=== PATIENT | female | born 1960 | race Caucasian/White ===

== ENCOUNTER 2017-06-06 07:20 | Day surgery (SDC) | payer MEDICAID ==
[~2017-06-06 07:20] MED LIST: Lactated Ringers 1,000 ML IV SCH; Lidocaine 1%/Sod Bicarbonate in NS 8.4% 1 ML Syringe PRN; Propofol 200 MG/20 ML SDV ONE; Sodium Chloride 0.9% 10 ML Syringe FLUSH PRN
--- NOTE | 2017-06-06 08:04 | PCM.PREANE ---
Preanesthetic Assessment - Anesthesia/Transfusion/Family Hx Anesthesia History: Prior Anesthesia Without Reaction Family History of Anesthesia Reaction: No Transfusion History: Prior Transfusion Reaction Intubation History: Unknown - Review of Systems General: Weakness, Fatigue Pulmonary: Shortness of Breath Cardiovascular: No Symptoms Gastrointestinal: No Symptoms Other: Reports: None - Physical Assessment NPO Status Date: 06/06/17 NPO Status Time: 04:00 Pulse: 70 O2 Sat by Pulse Oximetry: 98 Respiratory Rate: 16 Blood Pressure: 100/67 Temperature: 98.9 C ASA Class: 2 Mental Status: Alert & Oriented x3 Airway Class: Mallampati = 2 Dentition: Reports: Dentures Thyro-Mental Finger Breadths: 3 Mouth Opening Finger Breadths: 3 ROM/Head Extension: Full Lungs: Clear to Auscultation, Normal Respiratory Effort, Crackles Cardiovascular: Regular Rate, Regular Rhythm - Allergies Allergies/Adverse Reactions: Allergies Allergy/AdvReac Type Severity Reaction Status Date / Time bacitracin Allergy Rash Verified 06/03/17 11:08 [From Neosporin ([id number]-[id number])] bacitracin zinc Allergy Rash Verified 06/03/17 11:08 [From Neosporin ([id number]-gyt-[id number])] clonidine HCl [From Catapres] Allergy Hives Verified 06/03/17 11:08 neomycin sulfate Allergy Rash Verified 06/03/17 11:08 [From Neosporin ([id number]-[id number])] polymyxin B Allergy Rash Verified 06/03/17 11:08 [From Neosporin (uwj-[id number])] codeine AdvReac Nausea and Verified 06/03/17 11:08 Vomiting - Anesthesia Plan Beta Tarik: Carvedilol Med Last Dose Date: 06/04/17 - Acknowledgements Anesthesia Type Planned: MAC Pt an Appropriate Candidate for the Planned Anesthesia: Yes Alternatives and Risks of Anesthesia Discussed w Pt/Guardian: Yes Pt/Guardian Understands and Agrees with Anesthesia Plan: Yes PreAnesthesia Questionnaire HEENT History: Reports: Impaired Vision Cardiovascular History: Reports: CAD, High Cholesterol, Hypertension, Stents, Other (See Below) Other Cardiovascular History: palpitations, chest pain, sinus tachycardia, angiogram Respiratory History: Reports: COPD, SOB Gastrointestinal History: Reports: Chronic Constipation, Hemorrhoids, Other ( See Below) Other Gastrointestinal History: weight loss, rectal bleeding, liver cysts, Hepatits A Genitourinary History: Reports: Urinary Incontinence [employer]IE[employer]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 History: Reports: None Neurological History: Reports: None Psychiatric History: Reports: Addiction, Anxiety, Panic Attack, Other (See Below ) Other Psychiatric History: fatigue, etoh abuse Endocrine/Metabolic History: Reports: None Hematologic History: Reports: Anemia, Blood Transfusion(s) Immunologic History: Reports: None Oncologic (Cancer) History: Reports: None Dermatologic History: Reports: None - Past Surgical History Head Surgeries/Procedures: Reports: None HEENT Surgical History: Cardiovascular Surgical History: Reports: None Respiratory Surgical History: Reports: None GI Surgical History: Reports: Colonoscopy, EGD Female Surgical History: Reports: Breast Reconstruction, Tubal Ligation Male Surgical History: Reports: None Endocrine Surgical History: Reports: None Neurological Surgical History: Reports: None Musculoskeletal Surgical History: Reports: Other (See Below) Other Musculoskeletal Surgeries/Procedures:: left leg fracture with surgery Oncologic Surgical History: Reports: None Dermatological Surgical History: Reports: None - SUBSTANCE USE Smoking Status *Q: Current Every Day Smoker Second Hand Smoke Exposure: No Days Per Week of Alcohol Use: 7 Number of Drinks Per Day: 12 Total Drinks Per Week: 84 Recreational Drug Use History: No - HOME MEDS Home Medications: Home Meds Simvastatin [Zocor] 40 mg PO BEDTIME 03/09/14 [History] Nitroglycerin [Nitrostat] 0.4 mg SL Q5M PRN 03/10/14 [History] [place]-3 Fatty Acids [[place]-3] 1,000 mg PO BID 03/10/14 [History] Albuterol Sulfate [Proair Hfa] 2 puff INH Q4H PRN 06/03/17 [History] Aspirin [Halfprin] 81 mg PO DAILY 06/03/17 [History] Cholecalciferol (Vitamin D3) [Vitamin D3] 1,000 unit PO DAILY 06/03/17 [History] ClonazePAM [KlonoPIN] 0.5 mg PO TID 06/03/17 [History] Fluticasone/Salmeterol [Advair 250-50 Diskus] 1 puff INH BID 06/03/17 [History] Isosorbide Mononitrate [Imdur] 60 mg PO DAILY 06/03/17 [History] Tiotropium [Spiriva Handihaler] 1 puff INH DAILY 06/03/17 [History] Venlafaxine HCl [Venlafaxine ER] 75 mg PO DAILY 06/03/17 [History] Venlafaxine HCl [Venlafaxine ER] 150 mg PO DAILY 06/03/17 [History] busPIRone [Buspar] 5 mg PO TID 06/03/17 [History] traZODone HCl [Trazodone HCl] 50 mg PO BEDTIME 06/03/17 [History] - CURRENT (IN HOUSE) MEDS Current Meds: Current Medications Lactated Ringer's (Ringers, Lactated) 1,000 mls @ 125 mls/hr IV ASDIRECTED FERMIN Stop: 06/06/17 23:00 Lidocaine/Sodium Bicarbonate (Buffered Lidocaine 1% In Ns 8.4%) 0.25 ml .XX ONETIME PRN PRN Reason: Prior to IV Start Stop: 06/06/17 18:00 Sodium Chloride (Saline Flush) 10 ml FLUSH ASDIRECTED PRN PRN Reason: Keep Vein Open Stop: 06/06/17 18:00 Discontinued Medications Propofol (Diprivan 20 Ml) Confirm Administered Dose 200 mg .ROUTE .STK-MED ONE Stop: 06/06/17 07:18
[2017-06-06] MEDS ORDERED: Propofol 200 MG/20 ML SDV ONE (08:49)
--- NOTE | 2017-06-06 09:26 | PCM48HPAN ---
Post Anesthesia Note - EVALUATION WITHIN 48HRS OF ANESTHETIC Vital Signs in Normal Range: Yes Patient Participated in Evaluation: Yes Respiratory Function Stable: Yes Airway Patent: Yes Cardiovascular Function Stable: Yes Hydration Status Stable: Yes Pain Control Satisfactory: Yes Nausea and Vomiting Control Satisfactory: Yes Mental Status Recovered: Yes
[2017-06-06 09:49] VITALS: BP 105/69
--- NOTE | 2017-06-06 10:00 | PCM.OPNOTE ---
- General Post-Op/Procedure Note Date of Surgery/Procedure: 06/06/17 Operative Procedure(s): EGD with bx and colonosocopy Pre Op Diagnosis: rectal bleeding and early satiety and wt loss Post-Op Diagnosis: Same Anesthesia Technique: MAC Primary Surgeon: Kenney Amos EBL in mLs: 0 Complications: None Condition: Good
--- NOTE | 2017-06-06 12:39 | OR ---
DATE OF OPERATION: 06/06/2017 SURGEON: Kenney Amos MD PREOPERATIVE DIAGNOSIS: Early satiety, weight loss. POSTOPERATIVE DIAGNOSIS: Early satiety, weight loss. OPERATION PERFORMED: Esophagogastroduodenoscopy with biopsy. FINDINGS AND PROCEDURE: Normal second portion of the duodenum, duodenal bulb, and pyloric channel. Antrum, body, and cardia of the stomach did not show any acute lesions. There were some specks of blood noted throughout the stomach without any source noted. Biopsies of the antrum were taken. The hiatus appeared to be intact and scope withdrawn to the GE junction located at 40 cm. There was some chronic esophagitis, but no acute disease. The Z-line was sharp. The rest of the esophagus was viewed as the scope withdrawn was normal. The patient tolerated the procedure and IV sedation was continued for colonoscopy. ANESTHESIA: ESTIMATED BLOOD LOSS: MMODAL /[id number]
--- NOTE | 2017-06-06 12:39 | OR ---
DATE OF OPERATION: 06/06/2017 SURGEON: Kenney Amos MD PREOPERATIVE DIAGNOSIS: Rectal bleeding. POSTOPERATIVE DIAGNOSIS: Rectal bleeding. OPERATION PERFORMED: Colonoscopy to cecum. FINDINGS: Occasional diverticula in the sigmoid colon. Internal hemorrhoids are likely source of bleeding. There were no angiodysplasias, neoplasias, large tumor masses, or ulcerations. ANESTHESIA: Under IV sedation. DESCRIPTION OF PROCEDURE: The patient was taken to the endoscopy room, placed in a supine position, having been connected to monitoring equipment, given IV sedation for upper GI endoscopy, the IV sedation was continued for colonoscopy. She was placed in the left lateral position. Perianal area showed some hemorrhoidal tags. Rectal exam showed good sphincter tone. Video Olympus colonoscope was then introduced into the rectum and threaded up without problem to the cecum, where the appendicular orifice and ileocecal valve were noted. Prep was excellent throughout the colon. [place] cleansing score grade A. The scope was slowly withdrawn showing the cecum, ascending colon, transverse colon, descending colon, sigmoid colon, and rectum. Internal hemorrhoids were noted as the likely source of bleeding. The patient tolerated the procedure and sent to recovery room in a stable condition. She will be followed up as needed in the clinic. ESTIMATED BLOOD LOSS: MMODAL /[id number]
== END 2017-06-06 10:10 | disposition home or self-care (01) ==
LOC: JD.SDS 07:20
PROVIDERS: ATTEND Surgery
DX: K29.50 Unspecified chronic gastritis without bleeding (principal); K64.8 Other hemorrhoids; K20.9 Esophagitis, unspecified; K57.30 Diverticulosis of large intestine without perforation or abscess without bleeding; I25.10 Atherosclerotic heart disease of native coronary artery without angina pectoris; I10 Essential (primary) hypertension; J44.9 Chronic obstructive pulmonary disease, unspecified; E78.5 Hyperlipidemia, unspecified; F41.9 Anxiety disorder, unspecified; Z98.890 Other specified postprocedural states; Z88.1 Allergy status to other antibiotic agents; Z98.51 Tubal ligation status; Z79.82 Long term (current) use of aspirin; Z79.899 Other long term (current) drug therapy; F17.210 Nicotine dependence, cigarettes, uncomplicated; Z88.8 Allergy status to other drugs, medicaments and biological substances
CPT/HCPCS: 43239; J7120; 00810; J2704

== ENCOUNTER 2018-07-27 07:08 | Day surgery (SDC) | payer MEDICAID ==
[~2018-07-27 07:08] MED LIST changes: +Lidocaine 1%/Sod Bicarbonate in NS 8.4% 1 ML Syringe IDERM PRN; -Lidocaine 1%/Sod Bicarbonate in NS 8.4% 1 ML Syringe PRN; -Propofol 200 MG/20 ML SDV ONE
[2018-07-27] MEDS ORDERED: Bupivacaine 0.5%/EPINEPHrine 1:200,000 50 ML MDV ONE (07:22)
[2018-07-27] MEDS ORDERED: Lidocaine 1% with EPINEPHrine 1:100,000 20 ML MDV ONE (07:22)
--- NOTE | 2018-07-27 07:31 | PCM.PREANE ---
Preanesthetic Assessment - Anesthesia/Transfusion/Family Hx Anesthesia History: Prior Anesthesia Without Reaction Family History of Anesthesia Reaction: No Transfusion History: Prior Transfusion Reaction Intubation History: Unknown - Review of Systems General: No Symptoms Pulmonary: Cough (smoking AM and PM), Sputum Cardiovascular: Dyspnea on Exertion Gastrointestinal: No Symptoms Neurological: Numbness (fingers) Other: Reports: Easy Bleeding (nose), Easy Bruising, Anxiety - Physical Assessment NPO Status Date: 07/26/18 NPO Status Time: 00:00 Pulse: 68 O2 Sat by Pulse Oximetry: 98 Respiratory Rate: 16 Blood Pressure: 122/81 Temperature: 36.9 C Height: 1.65 m Weight: 69.581 kg ASA Class: 3 Mental Status: Alert & Oriented x3 Dentition: Reports: Dentures, Partial (lowwer) Thyro-Mental Finger Breadths: 3 Mouth Opening Finger Breadths: 2 ROM/Head Extension: Full Lungs: Clear to Auscultation, Normal Respiratory Effort Cardiovascular: Regular Rate, Regular Rhythm - Lab Values: on chart - Imaging/EKG Impressions: EKG 07/27/18 SR - Allergies Allergies/Adverse Reactions: Allergies Allergy/AdvReac Type Severity Reaction Status Date / Time bacitracin Allergy Rash Verified 07/26/18 13:07 [From Neosporin ([id number]-[id number])] bacitracin zinc Allergy Rash Verified 07/26/18 13:07 [From Neosporin (keo-azy-[id number])] clonidine HCl [From Catapres] Allergy Hives Verified 07/26/18 13:07 neomycin sulfate Allergy Rash Verified 07/26/18 13:07 [From Neosporin (jhm-shf-cvitb)] polymyxin B Allergy Rash Verified 07/26/18 13:07 [From Neosporin (rob-xpi-[id number])] codeine AdvReac Nausea and Verified 07/26/18 13:07 Vomiting - Blood Blood Available: No Product(s) Available: None - Anesthesia Plan Pre-Op Medication Ordered: Beta Tarik Beta Tarik: Carvedilol Med Last Dose Date: 07/26/18 Med Last Dose Time: 07:00 - Acknowledgements Anesthesia Type Planned: MAC Pt an Appropriate Candidate for the Planned Anesthesia: Yes Alternatives and Risks of Anesthesia Discussed w Pt/Guardian: Yes Pt/Guardian Understands and Agrees with Anesthesia Plan: Yes PreAnesthesia Questionnaire HEENT History: Reports: Impaired Vision, Other (See Below) Other HEENT History: wears glasses, has dentures Cardiovascular History: Reports: CAD, High Cholesterol, Hypertension, Stents, Other (See Below) Other Cardiovascular History: palpitations, chest pain, sinus tachycardia, angiogram Respiratory History: Reports: COPD, SOB Gastrointestinal History: Reports: Chronic Constipation, Hemorrhoids, Other ( See Below) Other Gastrointestinal History: weight loss, rectal bleeding, liver cysts, Hepatits A, reflux esophagitis, diverticula Genitourinary History: Reports: Urinary Incontinence [employer]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 Musculoskeletal History: Reports: Osteoporosis Neurological History: Reports: None Psychiatric History: Reports: Addiction, Anxiety, Panic Attack, Other (See Below ) Other Psychiatric History: fatigue, etoh abuse Endocrine/Metabolic History: Reports: None Hematologic History: Reports: Anemia, Blood Transfusion(s) Immunologic History: Reports: None Oncologic (Cancer) History: Reports: None Dermatologic History: Reports: None - Past Surgical History Head Surgeries/Procedures: Reports: None Cardiovascular Surgical History: Reports: None Respiratory Surgical History: Reports: None GI Surgical History: Reports: Colonoscopy, EGD Female Surgical History: Reports: Breast Reconstruction, Tubal Ligation Male Surgical History: Reports: None Endocrine Surgical History: Reports: None Neurological Surgical History: Reports: None Musculoskeletal Surgical History: Reports: Other (See Below) Other Musculoskeletal Surgeries/Procedures:: left leg fracture with surgery Oncologic Surgical History: Reports: None Dermatological Surgical History: Reports: Skin Biopsy - SUBSTANCE USE Smoking Status *Q: Current Every Day Smoker Tobacco Use Within Last Twelve Months: Cigarettes Second Hand Smoke Exposure: No Days Per Week of Alcohol Use: 0 Number of Drinks Per Day: 0 Total Drinks Per Week: 0 Recreational Drug Use History: No - HOME MEDS Home Medications: Home Meds Simvastatin [Zocor] 40 mg PO BEDTIME 03/09/14 [History] Nitroglycerin [Nitrostat] 0.4 mg SL Q5M PRN 03/10/14 [History] [place]-3 Fatty Acids [[place]-3] 1,000 mg PO BID 03/10/14 [History] Albuterol Sulfate [Proair Hfa] 2 puff INH Q4H PRN 06/03/17 [History] Aspirin [Halfprin] 81 mg PO DAILY 06/03/17 [History] Cholecalciferol (Vitamin D3) [Vitamin D3] 2,000 unit PO DAILY 06/03/17 [History] ClonazePAM [KlonoPIN] 0.5 mg PO TID 06/03/17 [History] Fluticasone/Salmeterol [Advair 250-50 Diskus] 1 puff INH BID 06/03/17 [History] Tiotropium [Spiriva Handihaler] 1 puff INH BID 06/03/17 [History] Venlafaxine HCl [Venlafaxine ER] 75 mg PO DAILY 06/03/17 [History] Venlafaxine HCl [Venlafaxine ER] 150 mg PO DAILY 06/03/17 [History] traZODone HCl [Trazodone HCl] 100 mg PO BEDTIME 06/03/17 [History] Albuterol [Proventil Neb Soln] 1 dose INH QID PRN 07/26/18 [History] Carvedilol [Coreg] 3.125 mg PO DAILY 07/26/18 [History] Isosorbide Mononitrate [Imdur] 30 mg PO DAILY 07/26/18 [History] LORazepam [Ativan] 0.5 mg PO TID PRN 07/26/18 [History] Multivitamin [Daily Multiple Vitamin] 1 tab PO DAILY 07/26/18 [History] Naproxen Sodium [Aleve] 220 mg PO BID PRN 07/26/18 [History] Omeprazole 20 mg PO QAM 07/26/18 [History] - CURRENT (IN HOUSE) MEDS Current Meds: Current Medications Lactated Ringer's (Ringers, Lactated) 1,000 mls @ 125 mls/hr IV ASDIRECTED FERMIN Stop: 07/27/18 23:00 Lidocaine/Sodium Bicarbonate (Buffered Lidocaine 1% In Ns 8.4%) 0.25 ml IDERM ONETIME PRN PRN Reason: Prior to IV Start Stop: 07/27/18 18:00 Sodium Chloride (Saline Flush) 10 ml FLUSH ASDIRECTED PRN PRN Reason: Keep Vein Open Stop: 07/27/18 18:00
[2018-07-27] MEDS ORDERED: Carvedilol 3.125 MG Tab PO SCH (07:45)
[2018-07-27] MEDS ORDERED: Ondansetron 4 MG/2 ML SDV ONE (07:51)
[2018-07-27] MEDS ORDERED: Midazolam 1 MG/ML 2 ML SDV ONE (07:52)
[2018-07-27] MEDS ORDERED: Propofol 200 MG/20 ML SDV ONE ×2 (07:52→09:11)
[2018-07-27] MEDS ORDERED: Lidocaine 1% 4 ML ONE (07:52)
[2018-07-27] MEDS ORDERED: fentaNYL 250 MCG/5 ML SDV ONE (07:52)
[2018-07-27] MEDS ORDERED: Ketamine 500 mg/10 ML MDV ONE (08:55)
[2018-07-27] MEDS ORDERED: Lactated Ringers 1,000 ML ONE (09:04)
[2018-07-27] MEDS ORDERED: ePHEDrine/Normal Saline 25 MG/5 ML Syringe ONE (09:13)
--- NOTE | 2018-07-27 09:52 | PCM.OPNOTE ---
- General Post-Op/Procedure Note Date of Surgery/Procedure: 07/27/18 Operative Procedure(s): excisional biopsy of rt cervical node Pre Op Diagnosis: cervical adenopathy Post-Op Diagnosis: Same Anesthesia Technique: MAC Primary Surgeon: Kenney Amos EBL in mLs: 8 Complications: None Condition: Good
[2018-07-27 11:11] VITALS: BP 131/86
--- NOTE | 2018-07-28 07:30 | OR ---
DATE OF OPERATION: 07/27/2018 SURGEON: Kenney Amos MD PREOPERATIVE DIAGNOSIS: Right cervical adenopathy. POSTOPERATIVE DIAGNOSIS: Right cervical adenopathy. PROCEDURE: Excision of right cervical node with biopsy. ANESTHESIA: Done under IV sedation local anesthetic 1% Xylocaine with epinephrine ESTIMATED BLOOD LOSS: 8 mL. DESCRIPTION OF PROCEDURE: Patient was seen in the preop and ultrasound was done showing the most efficacious nodule in the right cervical area to biopsy and this was marked. She was then taken to the operating room, placed in a supine position, connected to monitoring equipment, given IV sedation. The right neck was then clipped and prepped with chlorhexidine and alcohol, prepped and draped off in a sterile fashion. A vertical incision was made over the shila after localizing the skin in that area and carried down by sharp dissection to the nodule. Care was taken to preserve the superficial nerves. The node was then dissected out, portion of it did rupture showing necrotic material and this lymph node was then excised and another lymph node, pieces were taken in biopsy. The area was cleansed of the necrotic material and bleeding points were controlled at the capsule of the lymph node with electrocautery, which was quite sclerotic. The lymph node measured over a centimeter, about a centimeter and half. Surgicel was used to control oozing. The Surgicel was then removed and the subcuticular tissue was closed with interrupted 3-0 Vicryl suture and the skin with a running subdermal 4-0 Dexon suture. Steri-Strips and sterile dressing placed. The patient tolerated the procedure and sent to recovery room in a stable condition. OPERATION PERFORMED: MMODAL /[id number]
== END 2018-07-27 11:05 | disposition home or self-care (01) ==
LOC: JD.SDS 07:08
PROVIDERS: ATTEND Surgery
DX: C77.0 Secondary and unspecified malignant neoplasm of lymph nodes of head, face and neck (principal); C80.1 Malignant (primary) neoplasm, unspecified; J44.9 Chronic obstructive pulmonary disease, unspecified; I25.10 Atherosclerotic heart disease of native coronary artery without angina pectoris; E78.5 Hyperlipidemia, unspecified; I10 Essential (primary) hypertension; B15.9 Hepatitis A without hepatic coma; E78.00 Pure hypercholesterolemia, unspecified; M80.00XA Age-related osteoporosis with current pathological fracture, unspecified site, initial encounter for fracture; F17.210 Nicotine dependence, cigarettes, uncomplicated; Z88.1 Allergy status to other antibiotic agents; Z88.5 Allergy status to narcotic agent; Z88.8 Allergy status to other drugs, medicaments and biological substances; Z79.82 Long term (current) use of aspirin; Z79.899 Other long term (current) drug therapy
CPT/HCPCS: 38510; 76942; 93005; A9270; J2250; J2405; J2704; J3010; J7050; J7120; 00320; J2001; J3490

== ENCOUNTER 2018-09-22 11:33 | Day surgery (SDC) | payer MEDICAID ==
[~2018-09-22 11:33] MED LIST changes: +Lidocaine 1% PF 2 ML SDV ONE; +Midazolam 1 MG/ML 2 ML SDV ONE; +Propofol 200 MG/20 ML SDV ONE; +fentaNYL 100 MCG/2 ML SDV ONE
--- NOTE | 2018-09-22 11:33 | PCM.PREANE ---
Preanesthetic Assessment - Anesthesia/Transfusion/Family Hx Anesthesia History: Prior Anesthesia Without Reaction Family History of Anesthesia Reaction: No Transfusion History: Prior Transfusion Reaction Intubation History: Unknown - Review of Systems General: No Symptoms Pulmonary: No Symptoms (COPD- 1.5ppd times 40 years/ETOH:quit 2014.......Down to 2 cigarettes per day.), Shortness of Breath, Cough, Sputum (brown phlegm) Cardiovascular: No Symptoms (HTN, CAD-stents times 2 2010), Palpitations, Dyspnea on Exertion Gastrointestinal: No Symptoms (GERD history) Neurological: Headache, Numbness (fingers bilateral hands) Other: Reports: Easy Bleeding, Easy Bruising, Liver Problems (history of Hepatitis A as a child), Depression, Anxiety - Physical Assessment NPO Status Date: 09/21/18 NPO Status Time: 19:00 Pulse: 59 O2 Sat by Pulse Oximetry: 98 Respiratory Rate: 16 Blood Pressure: 122/84 Temperature: 37.2 C Height: 1.65 m Weight: 70.987 kg ASA Class: 3 Mental Status: Alert & Oriented x3 Airway Class: Mallampati = 3 Dentition: Reports: Dentures, Partial (Lower) Thyro-Mental Finger Breadths: 3 Mouth Opening Finger Breadths: 2 ROM/Head Extension: Full Lungs: Clear to Auscultation, Normal Respiratory Effort Cardiovascular: Regular Rate, Regular Rhythm, No Murmurs - Lab Values: All lab values reviewed and noted and within acceptable ranges to proceed with scheduled procedure. - Imaging/EKG Impressions: EKG: rate=67 - Allergies Allergies/Adverse Reactions: Allergies Allergy/AdvReac Type Severity Reaction Status Date / Time bacitracin Allergy Rash Verified 07/26/18 13:07 [From Neosporin (nhi-wrh-fuiki)] bacitracin zinc Allergy Rash Verified 07/26/18 13:07 [From Neosporin (gie-rwo-gcflz)] clonidine HCl [From Catapres] Allergy Hives Verified 07/26/18 13:07 neomycin sulfate Allergy Rash Verified 07/26/18 13:07 [From Neosporin ([id number]-zqh-[id number])] polymyxin B Allergy Rash Verified 07/26/18 13:07 [From Neosporin (asw-jvf-husfe)] codeine AdvReac Nausea and Verified 07/26/18 13:07 Vomiting - Anesthesia Plan Pre-Op Medication Ordered: Beta Tarik Beta Tarik: Carvedilol Med Last Dose Date: 09/22/18 Med Last Dose Time: 08:00 - Acknowledgements Anesthesia Type Planned: MAC Pt an Appropriate Candidate for the Planned Anesthesia: Yes Alternatives and Risks of Anesthesia Discussed w Pt/Guardian: Yes Pt/Guardian Understands and Agrees with Anesthesia Plan: Yes PreAnesthesia Questionnaire HEENT History: Reports: Impaired Vision, Other (See Below) Other HEENT History: wears glasses, has dentures Cardiovascular History: Reports: CAD, High Cholesterol, Hypertension, Stents, Other (See Below) Other Cardiovascular History: palpitations, chest pain, sinus tachycardia, angiogram Respiratory History: Reports: COPD, SOB Gastrointestinal History: Reports: Chronic Constipation, Hemorrhoids, Other ( See Below) Other Gastrointestinal History: weight loss, rectal bleeding, liver cysts, Hepatits A, reflux esophagitis, diverticula Genitourinary History: Reports: Urinary Incontinence [employer]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 Musculoskeletal History: Reports: Osteoporosis Neurological History: Reports: None Psychiatric History: Reports: Addiction, Anxiety, Panic Attack, Other (See Below ) Other Psychiatric History: fatigue, etoh abuse Endocrine/Metabolic History: Reports: None Hematologic History: Reports: Anemia, Blood Transfusion(s) Immunologic History: Reports: None Oncologic (Cancer) History: Reports: None Dermatologic History: Reports: None - Past Surgical History Head Surgeries/Procedures: Reports: None Cardiovascular Surgical History: Reports: None Respiratory Surgical History: Reports: None GI Surgical History: Reports: Colonoscopy, EGD Female Surgical History: Reports: Breast Reconstruction, Tubal Ligation Male Surgical History: Reports: None Endocrine Surgical History: Reports: None Neurological Surgical History: Reports: None Musculoskeletal Surgical History: Reports: Other (See Below) Other Musculoskeletal Surgeries/Procedures:: left leg fracture with surgery Oncologic Surgical History: Reports: None Dermatological Surgical History: Reports: Skin Biopsy - HOME MEDS Home Medications: Home Meds Nitroglycerin [Nitrostat] 0.4 mg SL Q5M PRN 03/10/14 [History] [place]-3 Fatty Acids [[place]-3] 1,000 mg PO BID 03/10/14 [History] Albuterol Sulfate [Proair Hfa] 2 puff INH Q4H PRN 06/03/17 [History] Aspirin [Halfprin] 81 mg PO DAILY 06/03/17 [History] Cholecalciferol (Vitamin D3) [Vitamin D3] 2,000 unit PO DAILY 06/03/17 [History] ClonazePAM [KlonoPIN] 0.5 mg PO TID 06/03/17 [History] Fluticasone/Salmeterol [Advair 250-50 Diskus] 1 puff INH BID 06/03/17 [History] Tiotropium [Spiriva Handihaler] 2 puff INH DAILY 06/03/17 [History] Venlafaxine HCl [Venlafaxine ER] 75 mg PO DAILY 06/03/17 [History] Venlafaxine HCl [Venlafaxine ER] 150 mg PO DAILY 06/03/17 [History] traZODone HCl [Trazodone HCl] 100 mg PO BEDTIME 06/03/17 [History] Albuterol [Proventil Neb Soln] 1 dose INH QID PRN 07/26/18 [History] Carvedilol [Coreg] 3.125 mg PO DAILY 07/26/18 [History] Isosorbide Mononitrate [Imdur] 30 mg PO DAILY 07/26/18 [History] LORazepam [Ativan] 0.5 mg PO TID PRN 07/26/18 [History] Multivitamin [Daily Multiple Vitamin] 1 tab PO DAILY 07/26/18 [History] Naproxen Sodium [Aleve] 220 mg PO BID PRN 07/26/18 [History] Omeprazole 20 mg PO QAM 07/26/18 [History] - CURRENT (IN HOUSE) MEDS Current Meds: Current Medications Lactated Ringer's (Ringers, Lactated) 1,000 mls @ 125 mls/hr IV ASDIRECTED FERMIN Stop: 09/25/18 23:00 Lidocaine/Sodium Bicarbonate (Buffered Lidocaine 1% In Ns 8.4%) 0.25 ml IDERM ONETIME PRN PRN Reason: Prior to IV Start Stop: 09/25/18 23:00 Sodium Chloride (Saline Flush) 10 ml FLUSH ASDIRECTED PRN PRN Reason: Keep Vein Open Stop: 09/25/18 23:00
[2018-09-22] MEDS ORDERED: Lidocaine 1% 30 ML SDV ONE (11:36)
[2018-09-22] MEDS ORDERED: Sodium Chloride 0.9% 50 ML SDV ONE (11:36)
[2018-09-22] MEDS ORDERED: Ketamine 500 mg/10 ML MDV ONE (12:08)
[2018-09-22] MEDS ORDERED: ceFAZolin 1 GM Vial ONE (12:08)
[2018-09-22] MEDS ORDERED: Lactated Ringers 1,000 ML ONE (12:47)
[2018-09-22] MEDS ORDERED: Ondansetron 4 MG/2 ML SDV ONE (12:49)
--- NOTE | 2018-09-22 13:01 | PCM.OPNOTE ---
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
--- NOTE | 2018-09-22 13:09 | PCM48HPAN ---
Post Anesthesia Note - EVALUATION WITHIN 48HRS OF ANESTHETIC Vital Signs in Normal Range: Yes Patient Participated in Evaluation: Yes Respiratory Function Stable: Yes Airway Patent: Yes Cardiovascular Function Stable: Yes Hydration Status Stable: Yes Pain Control Satisfactory: Yes Nausea and Vomiting Control Satisfactory: Yes Mental Status Recovered: Yes Pulse Rate: 65 SaO2: 94 Resp Rate: 16 Temperature: 98 F Blood Pressure: 123/78
[2018-09-22 13:58] VITALS: BP 153/76
--- NOTE | 2018-09-25 07:09 | OR ---
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 OPERATION PERFORMED: Placement of left subclavian Port-A-Cath done under intravenous sedation and 1% Xylocaine. ESTIMATED BLOOD LOSS: 20 mL. PORT SPECIFICATIONS: Port placed was a [employer]vue PowerPort, reference #[id number] and lot #[id number]. DESCRIPTION OF PROCEDURE: The patient taken to the operating room, placed in a supine position, connected to monitoring equipment, and given IV sedation. Antibiotics were given, and the patient was positioned on the table with a roll between the shoulder blades. The subclavian area and neck on both sides, right and left, were then prepped with Betadine, draped off in a sterile fashion. The right infraclavicular area skin was anesthetized with 1% xylocaine, and a Cook needle was inserted into subclavian vein, and the wire was then inserted under fluoroscopy and noted to go into the inferior vena cava. Over the wire, a vein dilator and breakaway sheath were placed, and the dilator and the wire were then removed, and through this port, a Silastic catheter previously prepared with saline was then inserted into the superior vena cava and positioned. The breakaway sheath was then removed, and the port pocket was then fashioned, and the catheter threaded to the port pocket, trimmed and attached to the previously prepared port, and locked into the port with a locking mechanism. Port was placed in the pocket and sutured into position with a 4-0 Vicryl Prolene suture. Following this, the subcuticular tissue closed with interrupted 3-0 Vicryl suture. The port was then aspirated without problem, irrigated with saline and heparinized saline, and the skin was closed with subdermal 4-0 Dexon suture at both sites. The Steri-Strips and sterile dressing placed. The patient tolerated the procedure, sent to recovery room in a stable condition. Chest x-ray will be obtained. ANESTHESIA: MMODAL /[id number]
--- NOTE | 2018-09-25 09:06 | CR ---
Port-A-Cath placement: Single fluoroscopic spot view was obtained during Port-A-Cath placement centered to the right mid chest. Tip of Port-A-Cath is seen lying in the region of the superior vena cava. Fluoroscopy time is given as 39.0 seconds. Impression: 1. Procedural study as noted above. Diagnostic code #2 I agree with preliminary report from [facility], finalized on 09/22/18, 2:40 PM Central Time
--- NOTE | 2018-09-25 09:08 | CR ---
Chest: Frontal view of the chest was obtained utilizing portable technique. Comparison: Previous chest x-ray of 03/09/14. Left-sided infusion port is seen. Catheter terminates in the expected region of the superior vena cava. Lung markings have increased in prominence from previous exam. Heart size is felt to be within normal limits for portable technique. Fracture within the right seventh rib which is an interval change from prior chest x-ray. Impression: 1. Left-sided port with tip lying within the expected region of superior vena cava. No pneumothorax is seen. 2. Increased lung markings from prior study with differential including infectious change or pulmonary vascular congestion. Interval appearance of fibrosis from prior chest x-ray is also within the differential. 3. Right-sided rib fracture as noted above. Diagnostic code #3 I agree with preliminary report from [facility], finalized on 09/22/18, 2:29 PM Central Time
== END 2018-09-22 14:00 | disposition home or self-care (01) ==
LOC: JD.SDS 11:33
PROVIDERS: ATTEND Surgery
DX: C96.9 Malignant neoplasm of lymphoid, hematopoietic and related tissue, unspecified (principal); J44.9 Chronic obstructive pulmonary disease, unspecified; E89.6 Postprocedural adrenocortical (-medullary) hypofunction; I10 Essential (primary) hypertension; I25.10 Atherosclerotic heart disease of native coronary artery without angina pectoris; M81.0 Age-related osteoporosis without current pathological fracture; K59.09 Other constipation; F41.9 Anxiety disorder, unspecified; F17.210 Nicotine dependence, cigarettes, uncomplicated; Z79.82 Long term (current) use of aspirin; Z79.899 Other long term (current) drug therapy; Z88.1 Allergy status to other antibiotic agents; Z88.5 Allergy status to narcotic agent; Z88.8 Allergy status to other drugs, medicaments and biological substances
CPT/HCPCS: 36561; 71045; 76000; J0690; J1642; J2001; J2250; J2405; J2704; J3010; J7120; 00532; C1788

== ENCOUNTER 2019-03-30 17:46 | Inpatient (IN) | payer MEDICAID ==
[2019-03-30] MEDS ORDERED: Albuterol/Ipratropium 3.0-0.5 MG/3 ML Neb Soln NEB ONE (19:37)
--- NOTE | 2019-03-30 21:02 | EDM.PDOC ---
ED HPI GENERAL MEDICAL PROBLEM - General Chief Complaint: General Stated Complaint: SOB Time Seen by Provider: 03/30/19 19:01 Source of Information: Reports: Patient History Limitations: Reports: No Limitations - History of Present Illness INITIAL COMMENTS - FREE TEXT/NARRATIVE: This is a 58-year-old female. She has an extensive history with squamous cell carcinoma with metastases to her back and she says everywhere. She did receive recently 10 radiation treatments to her neck her mid chest area and her back and 16 monos. This was perhaps 3 weeks ago she believes. She also was felt to have a lung infection about 2 weeks ago and placed on 7 days of Levaquin. She comes tonight because she's been having a difficult time in breathing and she's got some swelling in her lower extremities. She is coughing up quite a bit and feels like she is congested. She says when she swallows food it hurts when he gets to the mid esophagus area where she had the radiation. He been sticking to mostly yogurt and ice cream and soft foods and liquids. He states over the last few days if she tries to lie down flat she gets very short of breath and she requires 2 pillows at nighttime to sleep upright. Denies any chest pain though she has a history of cardiac problems with 2 stents back in 2010. She is not on any sort of fluid pills. Due to the met metastatic cancer she does have a collapsed disc in her back but she can't remember which one. He says this shortness of breath and this difficulty in breathing and swelling started around Tuesday of this week and is progressively gotten worse. He has a history of COPD but no history of congestive heart failure. She was seen in the [facility] this afternoon and ate chest x-ray at that time showed a port noted acute cardiopulmonary disease though there is metastatic disease that they can see in her mid thoracic spine. I have some old notes from Dr. Patricio her oncologist but they're dated from the time she was having chemotherapy and radiation. Blood work from around noon today shows a white count of 3.2 hemoglobin of 9.0 and toxic granulation present her chemistry panel showed a BUN of 26 creatinine of 0.72 and essentially the rest of her chem panel was normal they did a magnesium that was 1.6. Other Treatments [employer]IEF: 0xycodone 10 mg [employer]IEF about 10 minutes ago Upper Back Pain Score (Numeric/FACES): 7 - Related Data Allergies Allergy/AdvReac Type Severity Reaction Status Date / Time bacitracin Allergy Rash Verified 03/30/19 20:03 [From Neosporin ([id number])] bacitracin zinc Allergy Rash Verified 03/30/19 20:03 [From Neosporin ([id number])] clonidine HCl [From Catapres] Allergy Hives Verified 03/30/19 20:03 neomycin sulfate Allergy Rash Verified 03/30/19 20:03 [From Neosporin ([id number])] polymyxin B Allergy Rash Verified 03/30/19 20:03 [From Neosporin ([id number])] codeine AdvReac Nausea and Verified 03/30/19 20:03 Vomiting Home Meds: Home Meds Nitroglycerin [Nitrostat] 0.4 mg SL Q5M PRN 03/10/14 [History] Oil Trough-3 Fatty Acids [Oil Trough-3] 1,000 mg PO BID 03/10/14 [History] Albuterol Sulfate [Proair Hfa] 2 puff INH Q4H PRN 06/03/17 [History] Aspirin [Halfprin] 81 mg PO DAILY 06/03/17 [History] Cholecalciferol (Vitamin D3) [Vitamin D3] 2,000 unit PO DAILY 06/03/17 [History] ClonazePAM [KlonoPIN] 0.5 mg PO TID 06/03/17 [History] Tiotropium [Spiriva Handihaler] 2 puff INH DAILY 06/03/17 [History] Venlafaxine HCl [Venlafaxine ER] 75 mg PO DAILY 06/03/17 [History] Venlafaxine HCl [Venlafaxine ER] 150 mg PO DAILY 06/03/17 [History] traZODone HCl [Trazodone HCl] 100 mg PO BEDTIME 06/03/17 [History] Albuterol [Proventil Neb Soln] 1 dose INH QID PRN 07/26/18 [History] Carvedilol [Coreg] 3.125 mg PO BID 07/26/18 [History] Isosorbide Mononitrate [Imdur] 15 mg PO DAILY 07/26/18 [History] LORazepam [Ativan] 0.5 mg PO TID PRN 07/26/18 [History] Multivitamin [Daily Multiple Vitamin] 1 tab PO DAILY 07/26/18 [History] Naproxen Sodium [Aleve] 220 mg PO BID PRN 07/26/18 [History] Omeprazole 20 mg PO QAM 07/26/18 [History] Varenicline Tartrate [Chantix] 1 mg PO BID 09/22/18 [History] atorvaSTATin [Lipitor] 40 mg PO DAILY 09/22/18 [History] Ondansetron [Zofran ODT] 8 mg PO Q8HR PRN 03/30/19 [History] clonazePAM [Klonopin] 1 mg PO QPM 03/30/19 [History] dexAMETHasone [Dexamethasone] 4 mg PO DAILY 03/30/19 [History] oxyCODONE 1 tab PO Q6HR PRN 03/30/19 [History] Past Medical History HEENT History: Reports: Impaired Vision, Other (See Below) Other HEENT History: wears glasses, has dentures Cardiovascular History: Reports: CAD, High Cholesterol, Hypertension, Stents, Other (See Below) Other Cardiovascular History: palpitations, chest pain, sinus tachycardia, angiogram Respiratory History: Reports: COPD, SOB Gastrointestinal History: Reports: Chronic Constipation, Hemorrhoids, Other ( See Below) Other Gastrointestinal History: weight loss, rectal bleeding, liver cysts, Hepatits A, reflux esophagitis, diverticula Genitourinary History: Reports: Urinary Incontinence [employer] OFFICER History: Reports: None Musculoskeletal History: Reports: Osteoporosis Neurological History: Reports: None Psychiatric History: Reports: Addiction, Anxiety, Panic Attack, Other (See Below ) Other Psychiatric History: fatigue, etoh abuse Endocrine/Metabolic History: Reports: None Hematologic History: Reports: Anemia, Blood Transfusion(s) Immunologic History: Reports: None Oncologic (Cancer) History: Reports: None Dermatologic History: Reports: None - Past Surgical History Head Surgeries/Procedures: Reports: None Cardiovascular Surgical History: Reports: None Respiratory Surgical History: Reports: None GI Surgical History: Reports: Colonoscopy, EGD Female Surgical History: Reports: Breast Reconstruction, Tubal Ligation Endocrine Surgical History: Reports: None Neurological Surgical History: Reports: None Musculoskeletal Surgical History: Reports: Other (See Below) Other Musculoskeletal Surgeries/Procedures:: left leg fracture with surgery Oncologic Surgical History: Reports: None Dermatological Surgical History: Reports: Skin Biopsy Social & Family History - Tobacco Use Smoking Status *Q: Former Smoker Used Tobacco, but Quit: Yes Month/Year Tobacco Last Used: yesterday - Caffeine Use Caffeine Use: Reports: Coffee, Tea - Recreational Drug Use Recreational Drug Use: No ED ROS GENERAL - Review of Systems Review Of Systems: See Below Constitutional: Denies: Fever, Chills HEENT: Reports: Throat Pain. Denies: Rhinitis, Sinus Problem Respiratory: Reports: Shortness of Breath, Wheezing, Cough, Sputum Cardiovascular: Reports: Chest Pain, Dyspnea on Exertion, Edema, Other ( Orthopnea) Endocrine: Reports: No Symptoms GI/Abdominal: Reports: Other (Marked bruising on her abdomen she states where she was pushing up against a counter to support her back that was hurting). Denies: Abdominal Pain : Denies: Dysuria Musculoskeletal: Reports: Back Pain Skin: Reports: Pallor, Bruising. Denies: Rash Neurological: Reports: Weakness. Denies: Headache, Syncope Psychiatric: Reports: No Symptoms Hematologic/Lymphatic: Reports: Easy Bruising ED EXAM, GENERAL - Physical Exam Exam: See Below Exam Limited By: No Limitations General Appearance: Alert, WD/WN, No Apparent Distress Eye Exam: Bilateral Eye: Normal Inspection Ears: Normal External Exam, Normal Canal, Normal TMs Nose: Normal Inspection, Other (Minimal congestion) Throat/Mouth: Normal Inspection, Normal Lips, Normal Voice, No Airway Compromise , Other (Tacky mucous membranes, oropharynx is somewhat reddened but not raw) Head: Atraumatic, Normocephalic Neck: Supple Respiratory/Chest: Other (Lungs had decreased breath sounds in the bases but I do not hear any specific wheezing at this time and she is not in respiratory distress) Cardiovascular: Regular Rate, Rhythm, No Murmur. No: Tachycardia GI/Abdominal: Soft, Other (She has a stripper of deep bruising about 5-6 cm wide going from the umbilicus down to the pubic area, she denies any significant abdominal tenderness other than over the bruising) Back Exam: Decreased Range of Motion, Other (Midthoracic tenderness, history of metastasis to her spine) Extremities: Pedal Edema, Other (He is noted to have 2+ edema in her feet and ankles but not upper legs) Neurological: Alert, Oriented, Normal Cognition, No Motor/Sensory Deficits Psychiatric: Normal Affect, Normal Mood Skin Exam: Warm, Dry EKG INTERPRETATION EKG Date: 03/30/19 Time: 19:50 EKG Interpretation Comments: EKG shows a normal sinus rhythm with no acute ST or T-wave changes and no ischemia is noted. Course - Vital Signs Last Recorded V/S: Last Vital Signs Temp 98.0 F 03/30/19 18:04 Pulse 104 H 03/30/19 18:04 Resp 24 H 03/30/19 18:04 BP 175/98 H 03/30/19 18:04 Pulse Ox 96 03/30/19 19:55 - Orders/Labs/Meds Orders: Active Orders 24 hr Category Date Time Status EKG 12 Lead [EKG Documentation Completion] [RC] STAT Care 03/30/19 19:41 Active RT Aerosol Therapy [RC] ASDIRECTED Care 03/30/19 19:41 Active Chest 2V [CR] Stat Exams 03/30/19 19:44 Taken Labs: Laboratory Tests 03/30/19 03/30/19 03/30/19 Range/Units 19:54 19:54 19:54 WBC 2.85 L (3.98-10.04) K/mm3 RBC 2.34 L (3.98-5.22) M/mm3 Hgb 8.7 L (11.2-15.7) gm/L Hct 26.1 L (34.1-44.9) % MCV 111.5 H D (79.4-94.8) fl MCH 37.2 H (25.6-32.2) pg MCHC 33.3 (32.2-35.5) g/dl RDW Std Deviation 56.2 H (36.4-46.3) fL Plt Count 70 L D (182-369) K/mm3 MPV 10.3 (9.4-12.3) fl Neut % (Auto) 67.0 (34.0-71.1) % Lymph % (Auto) 15.4 L (19.3-51.7) % [place] % (Auto) 7.4 (4.7-12.5) % Eos % (Auto) 0 L (0.7-5.8) Baso % (Auto) 0.4 (0.1-1.2) % Neut # (Auto) 1.91 (1.56-6.13) K/mm3 Lymph # (Auto) 0.44 L (1.18-3.74) K/mm3 [place] # (Auto) 0.21 L (0.24-0.36) K/mm3 Eos # (Auto) 0.00 L (0.04-0.36) K/mm3 Baso # (Auto) 0.01 (0.01-0.08) K/mm3 Manual Slide Review Abnormal smear Sodium 133 L (136-145) mEq/L Potassium 3.8 (3.5-5.1) mEq/L Chloride 99 (98-107) mEq/L Carbon Dioxide 26 (21-32) mEq/L Anion Gap 11.8 (5-15) BUN 21 H (7-18) mg/dL Creatinine 0.7 (0.55-1.02) mg/dL Est Cr Clr Drug Dosing 79.79 mL/min Estimated GFR (MDRD) > 60 (>60) mL/min BUN/Creatinine Ratio 30.0 H (14-18) Glucose 141 H (74-106) mg/dL Lactic Acid (0.4-2.0) mmol/L Calcium 8.8 (8.5-10.1) mg/dL Total Bilirubin 0.6 (0.2-1.0) mg/dL AST 28 (15-37) U/L ALT 27 (14-59) U/L Alkaline Phosphatase 84 (46-116) U/L Troponin I < 0.017 (0.00-0.056) ng/mL C-Reactive Protein 10.6 H* (<1.0) mg/dL NT-Pro-B Natriuret Pep 271 H (0-125) pg/mL Total Protein 6.5 (6.4-8.2) g/dl Albumin 2.6 L (3.4-5.0) g/dl Globulin 3.9 gm/dL Albumin/Globulin Ratio 0.7 L (1-2) 03/30/19 Range/Units 19:54 WBC (3.98-10.04) K/mm3 RBC (3.98-5.22) M/mm3 Hgb (11.2-15.7) gm/L Hct (34.1-44.9) % MCV (79.4-94.8) fl MCH (25.6-32.2) pg MCHC (32.2-35.5) g/dl RDW Std Deviation (36.4-46.3) fL Plt Count (182-369) K/mm3 MPV (9.4-12.3) fl Neut % (Auto) (34.0-71.1) % Lymph % (Auto) (19.3-51.7) % [place] % (Auto) (4.7-12.5) % Eos % (Auto) (0.7-5.8) Baso % (Auto) (0.1-1.2) % Neut # (Auto) (1.56-6.13) K/mm3 Lymph # (Auto) (1.18-3.74) K/mm3 [place] # (Auto) (0.24-0.36) K/mm3 Eos # (Auto) (0.04-0.36) K/mm3 Baso # (Auto) (0.01-0.08) K/mm3 Manual Slide Review Sodium (136-145) mEq/L Potassium (3.5-5.1) mEq/L Chloride (98-107) mEq/L Carbon Dioxide (21-32) mEq/L Anion Gap (5-15) BUN (7-18) mg/dL Creatinine (0.55-1.02) mg/dL Est Cr Clr Drug Dosing mL/min Estimated GFR (MDRD) (>60) mL/min BUN/Creatinine Ratio (14-18) Glucose (74-106) mg/dL Lactic Acid 1.8 (0.4-2.0) mmol/L Calcium (8.5-10.1) mg/dL Total Bilirubin (0.2-1.0) mg/dL AST (15-37) U/L ALT (14-59) U/L Alkaline Phosphatase (46-116) U/L Troponin I (0.00-0.056) ng/mL C-Reactive Protein (<1.0) mg/dL NT-Pro-B Natriuret Pep (0-125) pg/mL Total Protein (6.4-8.2) g/dl Albumin (3.4-5.0) g/dl Globulin gm/dL Albumin/Globulin Ratio (1-2) Meds: Medications Discontinued Medications Generic Name Dose Route Start Last Admin Trade Name Freq PRN Reason Stop Dose Admin Albuterol/Ipratropium 3 ml 03/30/19 19:37 03/30/19 19:55 Duoneb 3.0-0.5 Mg/3 Ml NEB 03/30/19 19:38 3 ml ONETIME ONE Administration - Radiology Interpretation Free Text/Narrative:: X-ray shows COPD changes but no acute infiltrates. - Re-Assessments/Exams Free Text/Narrative Re-Assessment/Exam: 03/30/19 21:43 Patient has been doing well after the breathing treatment with minimal shortness of breath and minimal congestion or coughing. I spoke to the patient and family regarding the x-ray results as well as the lab work. I spoke to Dr. Arguello he is willing to put the patient in the hospital for fluids and 4 bronchitis with exacerbation of her COPD. Departure - Departure Time of Disposition: 21:49 Disposition: Admitted As Inpatient 67 Condition: Fair Clinical Impression: Chronic obstructive bronchitis without acute exacerbation, Metastatic squamous cell carcinoma, Hypoalbuminemia Leukopenia Qualifiers: Leukopenia type: neutropenia Neutropenia type: secondary to cancer chemotherapy Qualified Code(s): D70.1 - Agranulocytosis secondary to cancer chemotherapy; T45.1X5A - Adverse effect of antineoplastic and immunosuppressive drugs, initial encounter Anemia Qualifiers: Anemia type: other cause Other causes of anemia: antineoplastic chemotherapy Qualified Code(s): D64.81 - Anemia due to antineoplastic chemotherapy; T45.1X5A - Adverse effect of antineoplastic and immunosuppressive drugs, initial encounter - Discharge Information ED Communication - ED Communication Date/Time Date: 03/30/19 Time Called: 21:52 - Discussed Case With (1) Discussed Case With (1): Admitting Provider Person/s Notified (1): Schuyler Alaniz (He'll admit for further evaluation and treatment) - My Orders Last 24 Hours: My Active Orders 03/30/19 19:41 EKG 12 Lead [EKG Documentation Completion] [RC] STAT RT Aerosol Therapy [RC] ASDIRECTED 03/30/19 19:44 Chest 2V [CR] Stat - Assessment/Plan Last 24 Hours: My Active Orders 03/30/19 19:41 EKG 12 Lead [EKG Documentation Completion] [RC] STAT RT Aerosol Therapy [RC] ASDIRECTED 03/30/19 19:44 Chest 2V [CR] Stat
[2019-03-30] MEDS ORDERED: cefTRIAXone 2 GM in Sodium Chloride 0.9% 100 ML IV ONE ×2 (21:53→22:00)
[2019-03-30] MEDS ORDERED: Azithromycin 500 MG in Sodium Chloride 0.9% 250 ML IV ONE ×3 (21:54→23:15)
[2019-03-30] MEDS ORDERED: Acetaminophen/oxyCODONE 325-5 MG Tab PO PRN (23:01)
[2019-03-30] MEDS ORDERED: Ondansetron 4 MG in Sodium Chloride 0.9% 50 ML IV PRN (23:02)
[2019-03-30] MEDS ORDERED: Albuterol/Ipratropium 3.0-0.5 MG/3 ML Neb Soln NEB PRN (23:04)
[2019-03-30] MEDS ORDERED: Ondansetron 4 MG/2 ML SDV IVPUSH PRN (23:06)
[2019-03-30] MEDS: Sodium Chloride 0.9% 1,000 ML IV SCH (23:29)
[2019-03-30] MEDS ORDERED: ClonazePAM 0.5 MG Tab PO ONE (23:45)
[2019-03-30] MEDS ORDERED: traZODone 50 MG Tab PO ONE (23:46)
[2019-03-31] MEDS ORDERED: oxyCODONE 5 MG Tab PO ONE (03:10)
[2019-03-31] MEDS ORDERED: Albuterol/Ipratropium 3.0-0.5 MG/3 ML Neb Soln ONE (03:22)
[2019-03-31] MEDS: Albuterol/Ipratropium 3.0-0.5 MG/3 ML Neb Soln NEB SCH ×3 (04:14→15:06)
[2019-03-31] MEDS: Sodium Chloride 0.9% 1,000 ML IV SCH ×2 (07:34→15:29)
[2019-03-31] MEDS ORDERED: Nitroglycerin 0.4 MG Tab.SL SL PRN (09:08)
[2019-03-31] MEDS ORDERED: NAPROXEN SODIUM 220 MG PO PRN (09:08)
[2019-03-31] MEDS ORDERED: Ondansetron 4 MG Tab.DIS PO PRN (09:08)
[2019-03-31] MEDS ORDERED: Venlafaxine 75 MG Cap.ER PO SCH (09:30)
[2019-03-31] MEDS ORDERED: VENLAFAXINE HCL 150 MG PO SCH (09:30)
[2019-03-31] MEDS ORDERED: LORazepam 0.5 MG Tab PO PRN ×2 (09:45→21:00)
[2019-03-31] MEDS: Dexamethasone 4 MG Tab PO SCH ×3 (09:57→21:19)
[2019-03-31] MEDS: oxyCODONE 5 MG Tab PO PRN ×2 (09:57→16:17)
[2019-03-31] MEDS: Rosuvastatin 10 MG Tab PO SCH (09:58)
[2019-03-31] MEDS: Aspirin 81 MG Tab.EC PO SCH (09:58)
[2019-03-31] MEDS: Isosorbide Mononitrate 30 MG Tab.ER PO SCH (09:58)
[2019-03-31] MEDS: Carvedilol 3.125 MG Tab PO SCH ×2 (10:00→21:20)
[2019-03-31] MEDS ORDERED: Venlafaxine 75 MG Cap.ER PO ONE (10:15)
[2019-03-31] MEDS ORDERED: Magnesium Sulfate/Water 4 GM in Premix Bag 1 BAG IV ONE (11:35)
--- NOTE | 2019-03-31 15:57 | PCM.HP.2 ---
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 Patient recently completed radiation and chemotherapy. 2 weeks ago she had a "lung infection" and was placed on 7 days of Levaquin. Patient presented to the emergency room yesterday with some increased shortness of breath and swelling to her lower extremities. Patient states this morning that the swelling is better. She states she is coughing quite a bit and feels like she is congested. She does have some radiation esophagitis and it hurts to eat. She also states in the last few days when she tries to lie down she gets short of breath and requires 2 pillows to sleep. Patient was seen yesterday at the [facility] and chest x-ray at that time showed no acute cardiopulmonary disease. Osseous metastatic disease was noted overlying the mid thoracic spine that correlates well with a previous PET CT scan. In the emergency room patient was given a nebulized treatment. Chest x- ray was performed. No acute findings on chest x-ray. Laboratory tests: WBC 2.85 , hemoglobin 8.7, platelet count 70,000. Patient states this is consistent with what she's had since chemotherapy for a blood count. Chemistries: Sodium 133, potassium 3.8, chloride 99, carbon dioxide 26, BUN 21, creatinine 0.7, BNP 271, C-reactive protein 10.6, troponin less than 0.017, lactic acid 1.8. Patient was started on Rocephin and azithromycin and transferred to the floor. Upper Back Pain Score (Numeric/FACES): 8 - Related Data Allergies/Adverse Reactions: Allergies Allergy/AdvReac Type Severity Reaction Status Date / Time bacitracin Allergy Rash Verified 03/30/19 23:23 [From Neosporin ([id number])] bacitracin zinc Allergy Rash Verified 03/30/19 23:23 [From Neosporin ([id number])] clonidine HCl [From Catapres] Allergy Hives Verified 03/30/19 23:23 neomycin sulfate Allergy Rash Verified 03/30/19 23:23 [From Neosporin ([id number])] polymyxin B Allergy Rash Verified 03/30/19 23:23 [From Neosporin ([id number])] codeine AdvReac Nausea and Verified 03/30/19 23:23 Vomiting Home Medications: Home Meds Nitroglycerin [Nitrostat] 0.4 mg SL Q5M PRN 03/10/14 [History] Waldo-3 Fatty Acids [Waldo-3] 1,000 mg PO BID 03/10/14 [History] Albuterol Sulfate [Proair Hfa] 2 puff INH Q4H PRN 06/03/17 [History] Aspirin [Halfprin] 81 mg PO DAILY 06/03/17 [History] Cholecalciferol (Vitamin D3) [Vitamin D3] 2,000 unit PO DAILY 06/03/17 [History] Tiotropium [Spiriva Handihaler] 2 puff INH DAILY 06/03/17 [History] Venlafaxine HCl [Venlafaxine ER] 75 mg PO DAILY 06/03/17 [History] Venlafaxine HCl [Venlafaxine ER] 150 mg PO DAILY 06/03/17 [History] traZODone HCl [Trazodone HCl] 100 mg PO BEDTIME 06/03/17 [History] Albuterol [Proventil Neb Soln] 1 dose INH QID PRN 07/26/18 [History] Carvedilol [Coreg] 3.125 mg PO BID 07/26/18 [History] Isosorbide Mononitrate [Imdur] 15 mg PO DAILY 07/26/18 [History] LORazepam [Ativan] 0.5 mg PO TID PRN 07/26/18 [History] Multivitamin [Daily Multiple Vitamin] 1 tab PO DAILY 07/26/18 [History] Naproxen Sodium [Aleve] 220 mg PO DAILY PRN 07/26/18 [History] Omeprazole 20 mg PO QAM 07/26/18 [History] Varenicline Tartrate [Chantix] 1 mg PO BID 09/22/18 [History] atorvaSTATin [Lipitor] 40 mg PO DAILY 09/22/18 [History] Ondansetron [Zofran ODT] 8 mg PO Q8HR PRN 03/30/19 [History] clonazePAM [Klonopin] 0.5 mg PO QPM 03/30/19 [History] dexAMETHasone [Dexamethasone] 4 mg PO Q6H 03/30/19 [History] oxyCODONE 1 - 2 tab PO Q6HR PRN 03/30/19 [History] Albuterol Sulfate [Albuterol Sulfate Hfa] 108 mcg INH Q4HR PRN 03/31/19 [History ] Lidocaine/Prilocaine [EMLA Crm] 1 applic TOP ASDIRECTED PRN 03/31/19 [History] Past Medical History HEENT History: Reports: Impaired Vision, Other (See Below) Other HEENT History: wears glasses, has dentures, lower partial Cardiovascular History: Reports: CAD, High Cholesterol, Hypertension, Stents, Other (See Below) Other Cardiovascular History: palpitations, chest pain, sinus tachycardia, angiogram Respiratory History: Reports: COPD, SOB Gastrointestinal History: Reports: Chronic Constipation, Hemorrhoids, Other ( See Below) Other Gastrointestinal History: weight loss, rectal bleeding, liver cysts, Hepatits A, reflux esophagitis, diverticula Genitourinary History: Reports: Urinary Incontinence DIRECTOR OF LABOR RELATIONS History: Reports: , Other (See Below) Other OB/BYN History: vaginal pregnancies Musculoskeletal History: Reports: Osteoporosis Neurological History: Reports: None Psychiatric History: Reports: Addiction, Anxiety, OCD, Panic Attack, Suicide Attempt, Other (See Below) Other Psychiatric History: fatigue, etoh abuse Endocrine/Metabolic History: Reports: None Hematologic History: Reports: Anemia, Blood Transfusion(s) Immunologic History: Reports: None Oncologic (Cancer) History: Reports: Other (See Below) Other Oncologic History: head and neck cancer, spine, bone, collarbone with mets , lymphnodes. Has had radiation 10 treatments and 6 rounds of chemo finished last 3 weeks ago. Dermatologic History: Reports: None - Infectious Disease History Infectious Disease History: Reports: Chicken Pox, Hepatitis A, Influenza, Measles, Mumps - Past Surgical History HEENT Surgical History: Reports: None Cardiovascular Surgical History: Reports: Other (See Below) Other Cardiovascular Surgeries/Procedures: 2 stents placed Respiratory Surgical History: Reports: None GI Surgical History: Reports: Colonoscopy, EGD Female Surgical History: Reports: Breast Reconstruction, Tubal Ligation Endocrine Surgical History: Reports: None Neurological Surgical History: Reports: None Musculoskeletal Surgical History: Reports: Other (See Below) Other Musculoskeletal Surgeries/Procedures:: left leg fracture with surgery Dermatological Surgical History: Reports: Skin Biopsy Social & Family History - Family History Family Medical History: Noncontributory - Tobacco Use Smoking Status *Q: Former Smoker Packs/Tins Daily: 0.5 Used Tobacco, but Quit: Yes Month/Year Tobacco Last Used: 03/29/19 Second Hand Smoke Exposure: No - Caffeine Use Caffeine Use: Reports: Coffee, Tea Other Caffeine Use: tea a cup or two a day, 3 cups of coffee/day - Recreational Drug Use Recreational Drug Use: No H&P Review of Systems - Review of Systems: Review Of Systems: ROS reveals no pertinent complaints other than HPI. Exam - Exam Exam: See Below - Vital Signs Vital Signs: Last Vital Signs Temp 98.2 F 03/31/19 09:11 Pulse 108 H 03/31/19 11:03 Resp 20 03/31/19 11:03 BP 138/71 03/31/19 11:03 Pulse Ox 98 03/31/19 15:08 Weight: 173 lb 3.2 oz - Exam General: Alert, Oriented, 4 HEENT: Conjunctiva Clear, Hearing Intact, Mucosa Moist & [place], Normal Nasal Septum, Posterior Pharynx Clear, TMs Clear Neck: Supple, Trachea Midline, 2 Lungs: Normal Respiratory Effort, Wheezing Cardiovascular: Regular Rate, Regular Rhythm, Other (after breathing treatment patient was noted to have sinustachycardia up to 150.) GI/Abdominal Exam: Normal Bowel Sounds, Soft, Non-Tender, No Organomegaly, No Distention, No Abnormal Bruit, No Mass Extremities: Normal Inspection, Normal Range of Motion, Non-Tender, No Pedal Edema, Normal Capillary Refill Skin: Warm, Dry, Intact Neurological: Cranial Nerves Intact Neuro Extensive - Mental Status: Alert, Oriented x3, Normal Mood/Affect, Normal Cognition Psychiatric: Alert, Normal Affect, Normal Mood - Patient Data Lab Results Last 24 hrs: Laboratory Results - last 24 hr 03/30/19 03/30/19 03/30/19 Range/Units 19:54 19:54 19:54 WBC 2.85 L (3.98-10.04) K/mm3 RBC 2.34 L (3.98-5.22) M/mm3 Hgb 8.7 L (11.2-15.7) gm/L Hct 26.1 L (34.1-44.9) % MCV 111.5 H D (79.4-94.8) fl MCH 37.2 H (25.6-32.2) pg MCHC 33.3 (32.2-35.5) g/dl RDW Std Deviation 56.2 H (36.4-46.3) fL Plt Count 70 L D (182-369) K/mm3 MPV 10.3 (9.4-12.3) fl Neut % (Auto) 67.0 (34.0-71.1) % Lymph % (Auto) 15.4 L (19.3-51.7) % [place] % (Auto) 7.4 (4.7-12.5) % Eos % (Auto) 0 L (0.7-5.8) Baso % (Auto) 0.4 (0.1-1.2) % Neut # (Auto) 1.91 (1.56-6.13) K/mm3 Lymph # (Auto) 0.44 L (1.18-3.74) K/mm3 [place] # (Auto) 0.21 L (0.24-0.36) K/mm3 Eos # (Auto) 0.00 L (0.04-0.36) K/mm3 Baso # (Auto) 0.01 (0.01-0.08) K/mm3 Manual Slide Review Abnormal smear Sodium 133 L (136-145) mEq/L Potassium 3.8 (3.5-5.1) mEq/L Chloride 99 (98-107) mEq/L Carbon Dioxide 26 (21-32) mEq/L Anion Gap 11.8 (5-15) BUN 21 H (7-18) mg/dL Creatinine 0.7 (0.55-1.02) mg/dL Est Cr Clr Drug Dosing 79.79 mL/min Estimated GFR (MDRD) > 60 (>60) mL/min BUN/Creatinine Ratio 30.0 H (14-18) Glucose 141 H (74-106) mg/dL Lactic Acid (0.4-2.0) mmol/L Calcium 8.8 (8.5-10.1) mg/dL Magnesium (1.8-2.4) mg/dl Total Bilirubin 0.6 (0.2-1.0) mg/dL AST 28 (15-37) U/L ALT 27 (14-59) U/L Alkaline Phosphatase 84 (46-116) U/L Troponin I < 0.017 (0.00-0.056) ng/mL C-Reactive Protein 10.6 H* (<1.0) mg/dL NT-Pro-B Natriuret Pep 271 H (0-125) pg/mL Total Protein 6.5 (6.4-8.2) g/dl Albumin 2.6 L (3.4-5.0) g/dl Globulin 3.9 gm/dL Albumin/Globulin Ratio 0.7 L (1-2) 03/30/19 03/31/19 03/31/19 Range/Units 19:54 09:08 09:08 WBC 2.70 L (3.98-10.04) K/mm3 RBC 2.46 L (3.98-5.22) M/mm3 Hgb 9.0 L (11.2-15.7) gm/L Hct 27.4 L (34.1-44.9) % MCV 111.4 H (79.4-94.8) fl MCH 36.6 H (25.6-32.2) pg MCHC 32.8 (32.2-35.5) g/dl RDW Std Deviation 55.6 H (36.4-46.3) fL Plt Count 66 L (182-369) K/mm3 MPV 9.4 (9.4-12.3) fl Neut % (Auto) 67.6 (34.0-71.1) % Lymph % (Auto) 17.6 L (19.3-51.7) % [place] % (Auto) 6.5 (4.7-12.5) % Eos % (Auto) 0.7 (0.7-5.8) Baso % (Auto) 0.4 (0.1-1.2) % Neut # (Auto) 1.88 (1.56-6.13) K/mm3 Lymph # (Auto) 0.49 L (1.18-3.74) K/mm3 [place] # (Auto) 0.18 L (0.24-0.36) K/mm3 Eos # (Auto) 0.02 L (0.04-0.36) K/mm3 Baso # (Auto) 0.01 (0.01-0.08) K/mm3 Manual Slide Review Abnormal smear Sodium 137 (136-145) mEq/L Potassium 4.1 (3.5-5.1) mEq/L Chloride 101 (98-107) mEq/L Carbon Dioxide 27 (21-32) mEq/L Anion Gap 13.1 (5-15) BUN 17 (7-18) mg/dL Creatinine 0.6 (0.55-1.02) mg/dL Est Cr Clr Drug Dosing 93.09 mL/min Estimated GFR (MDRD) > 60 (>60) mL/min BUN/Creatinine Ratio 28.3 H (14-18) Glucose 79 (74-106) mg/dL Lactic Acid 1.8 (0.4-2.0) mmol/L Calcium 8.8 (8.5-10.1) mg/dL Magnesium 1.6 L (1.8-2.4) mg/dl Total Bilirubin 0.8 (0.2-1.0) mg/dL AST 26 (15-37) U/L ALT 25 (14-59) U/L Alkaline Phosphatase 75 (46-116) U/L Troponin I (0.00-0.056) ng/mL C-Reactive Protein 8.3 H* (<1.0) mg/dL NT-Pro-B Natriuret Pep (0-125) pg/mL Total Protein 6.3 L (6.4-8.2) g/dl Albumin 2.5 L (3.4-5.0) g/dl Globulin 3.8 gm/dL Albumin/Globulin Ratio 0.7 L (1-2) 03/31/19 Range/Units 09:08 WBC (3.98-10.04) K/mm3 RBC (3.98-5.22) M/mm3 Hgb (11.2-15.7) gm/L Hct (34.1-44.9) % MCV (79.4-94.8) fl MCH (25.6-32.2) pg MCHC (32.2-35.5) g/dl RDW Std Deviation (36.4-46.3) fL Plt Count (182-369) K/mm3 MPV (9.4-12.3) fl Neut % (Auto) (34.0-71.1) % Lymph % (Auto) (19.3-51.7) % [place] % (Auto) (4.7-12.5) % Eos % (Auto) (0.7-5.8) Baso % (Auto) (0.1-1.2) % Neut # (Auto) (1.56-6.13) K/mm3 Lymph # (Auto) (1.18-3.74) K/mm3 [place] # (Auto) (0.24-0.36) K/mm3 Eos # (Auto) (0.04-0.36) K/mm3 Baso # (Auto) (0.01-0.08) K/mm3 Manual Slide Review Sodium (136-145) mEq/L Potassium (3.5-5.1) mEq/L Chloride (98-107) mEq/L Carbon Dioxide (21-32) mEq/L Anion Gap (5-15) BUN (7-18) mg/dL Creatinine (0.55-1.02) mg/dL Est Cr Clr Drug Dosing mL/min Estimated GFR (MDRD) (>60) mL/min BUN/Creatinine Ratio (14-18) Glucose (74-106) mg/dL Lactic Acid (0.4-2.0) mmol/L Calcium (8.5-10.1) mg/dL Magnesium (1.8-2.4) mg/dl Total Bilirubin (0.2-1.0) mg/dL AST (15-37) U/L ALT (14-59) U/L Alkaline Phosphatase (46-116) U/L Troponin I (0.00-0.056) ng/mL C-Reactive Protein (<1.0) mg/dL NT-Pro-B Natriuret Pep 289 H (0-125) pg/mL Total Protein (6.4-8.2) g/dl Albumin (3.4-5.0) g/dl Globulin gm/dL Albumin/Globulin Ratio (1-2) Result Diagrams: 03/31/19 09:08 03/31/19 09:08 Problem List Initiated/Reviewed/Updated: Yes Orders Last 24hrs: Active Orders 24 hr Category Date Time Status Patient Status [ADT] Routine ADT 03/30/19 22:15 Active Antiembolic Devices [RC] PER UNIT ROUTINE Care 03/31/19 11:39 Active Implanted Port Access [RC] ASDIRECTED Care 03/30/19 21:30 Active RT Aerosol Therapy [RC] ASDIRECTED Care 03/30/19 19:41 Active RT Chest Physiotherapy [RC] ASDIRECTED Care 03/31/19 08:55 Active Up With Assistance [RC] ASDIRECTED Care 03/30/19 22:49 Active Soft Diet [DIET] Diet 03/31/19 Breakfast Active Chest 2V [CR] Stat Exams 03/30/19 19:44 Taken Acetaminophen/oxyCODONE [Percocet 325-5 MG] Med 03/30/19 23:01 Active 1 tab PO Q4H PRN Albuterol/Ipratropium [DuoNeb 3.0-0.5 MG/3 ML] Med 03/31/19 03:00 Active 3 ml NEB Q6HRRT Aspirin [Halfprin] Med 03/31/19 09:15 Active 81 mg PO DAILY Azithromycin [Zithromax] 500 mg Med 03/31/19 23:00 Active Sodium Chloride 0.9% [Normal Saline] 250 ml IV Q24H Carvedilol [Coreg] Med 03/31/19 09:15 Active 3.125 mg PO BID ClonazePAM [KlonoPIN] Med 03/31/19 18:00 Active 0.5 mg PO QPM Fish Oil/Waldo-3 Fatty Acids [Fish Oil] Med 03/31/19 21:00 Active 1 gm PO BID Isosorbide Mononitrate [Imdur] Med 03/31/19 09:15 Active 15 mg PO DAILY LORazepam [Ativan] Med 03/31/19 09:45 Active 0.5 mg PO TID PRN Nitroglycerin [Nitrostat] Med 03/31/19 09:08 Active 0.4 mg SL Q5M PRN Ondansetron [Zofran ODT] Med 03/31/19 09:08 Active 8 mg PO Q8HR PRN Ondansetron [Zofran] Med 03/30/19 23:06 Active 4 mg IVPUSH Q6H PRN Pantoprazole [ProTONIX] Med 04/01/19 07:00 Active 40 mg PO DAILY@0700 Patient's Own Medication [Ptom] Med 03/31/19 21:00 Active 0 each PO BID Patient's Own Medication [Ptom] Med 03/31/19 09:08 Active 0 each TOP ASDIRECTED PRN Rosuvastatin [Crestor] Med 03/31/19 09:45 Active 20 mg PO DAILY Sodium Chloride 0.9% [Normal Saline] 1,000 ml Med 03/30/19 23:00 Active IV ASDIRECTED cefTRIAXone [Rocephin] 2 gm Med 03/31/19 22:00 Active Sodium Chloride 0.9% [Normal Saline] 100 ml IV Q24H dexAMETHasone Med 03/31/19 10:00 Active 4 mg PO Q6H oxyCODONE Med 03/31/19 09:08 Active 5 - 10 mg PO Q6H PRN traZODone Med 03/31/19 21:00 Active 100 mg PO BEDTIME SCD [Sequential Compression Device] [OM.PC] Routine Oth 03/31/19 11:39 Ordered Code Status [Resuscitation Status] Routine Resus Stat 03/31/19 08:58 Ordered Medication Orders Albuterol/Ipratropium (Duoneb 3.0-0.5 Mg/3 Ml) 3 ml NEB Q6HRRT [facility] Last Admin: 03/31/19 15:06 Dose: 3 ml Admin: 03/31/19 08:49 Dose: 3 ml Admin: 03/31/19 04:14 Dose: Aspirin (Halfprin) 81 mg PO DAILY [facility] Last Admin: 03/31/19 09:58 Dose: 81 mg Carvedilol (Coreg) 3.125 mg PO BID [facility] Last Admin: 03/31/19 10:00 Dose: 3.125 mg Clonazepam (Klonopin) 0.5 mg PO QPM FERMIN Dexamethasone (Dexamethasone) 4 mg PO Q6H [facility] Last Admin: 03/31/19 09:57 Dose: 4 mg Fish Oil (Fish Oil) 1 gm PO BID [facility] Ceftriaxone Sodium 2 gm/ (Sodium Chloride) 100 mls @ 200 mls/hr IV Q24H FERMIN Azithromycin 500 mg/ Sodium (Chloride) 250 mls @ 250 mls/hr IV Q24H FERMIN Sodium Chloride (Normal Saline) 1,000 mls @ 125 mls/hr IV ASDIRECTED [facility] Last Admin: 03/31/19 15:29 Dose: 125 mls/hr Infusion: 03/31/19 15:29 Dose: 125 mls/hr Admin: 03/31/19 07:34 Dose: 125 mls/hr Infusion: 03/31/19 07:29 Dose: 125 mls/hr Admin: 03/30/19 23:29 Dose: 125 mls/hr Isosorbide Mononitrate (Imdur) 15 mg PO DAILY [facility] Last Admin: 03/31/19 09:58 Dose: 15 mg Lorazepam (Ativan) 0.5 mg PO TID PRN PRN Reason: ANXIETY Last Admin: 03/31/19 10:05 Dose: 0.5 mg Nitroglycerin (Nitrostat) 0.4 mg SL Q5M PRN PRN Reason: Chest Pain Ondansetron HCl (Zofran) 4 mg IVPUSH Q6H PRN PRN Reason: nausea Ondansetron HCl (Zofran Odt) 8 mg PO Q8HR PRN PRN Reason: Nausea Oxycodone HCl (Oxycodone) 5 - 10 mg PO Q6H PRN PRN Reason: Pain Last Admin: 03/31/19 09:57 Dose: 10 mg Oxycodone/Acetaminophen (Percocet 325-5 Mg) 1 tab PO Q4H PRN PRN Reason: Pain Pantoprazole Sodium (Protonix) 40 mg PO DAILY@0700 [facility] Lidocaine/Prilocaine (Cream) 0 each TOP ASDIRECTED PRN PRN Reason: Pain Varenicline Tartrate ([Chantix] 1 Mg) 0 each PO BID [facility] Rosuvastatin Calcium (Crestor) 20 mg PO DAILY [facility] Last Admin: 03/31/19 09:58 Dose: 20 mg Trazodone HCl (Trazodone) 100 mg PO BEDTIME [facility] Assessment/Plan Comment:: Assessment * 58-year-old with metastatic squamous cell head and neck, palpable oropharyngeal with metastatic disease to the bone, lymphadenopathy. * acute exacerbation on chronic COPD * pancytopenia; WBC 2.85, hemoglobin 8.7, platelets 70,000 * Sinus tachycardia up to 150 exacerbated by albuterol * Active problem list includes hypertension, COPD, hyperlipidemia, coronary artery disease involving [place] coronary artery of cury[place] heart without angina pectoris Plan * Admit to [facility] * Xopenex with ipratropium bromide every 6 hours nebulized solution * Xopenex nebulizer every 2 hours when necessary * Use Xopenex secondary to increased tachycardia with albuterol * Rocephin 2 g IV every 24 hours and azithromycin 500 mg IV every 24 hours * Reconcile home meds and pain meds. * CODE STATUS full code * VTE prophylaxis with SCDs - Mortality Measure Prognosis:: Poor
[2019-03-31] MEDS ORDERED: Levalbuterol HCl 1.25 MG/3 ML Neb NEB PRN (15:59)
[2019-03-31] MEDS ORDERED: Albuterol 0.083% 2.5 MG/3 ML Neb Soln INH PRN (16:40)
[2019-03-31] MEDS ORDERED: Sodium Chloride 0.9% 10 ML Syringe FLUSH PRN (17:47)
[2019-03-31] MEDS ORDERED: ClonazePAM 0.5 MG Tab PO SCH ×2 (18:00→21:00)
[2019-03-31] MEDS: LORazepam 0.5 MG Tab PO PRN (18:04)
[2019-03-31] MEDS: Levalbuterol HCl 1.25 MG/0.5 ML Neb NEB SCH (20:46)
[2019-03-31] MEDS: Ipratropium 0.02% 0.5 MG/2.5 ML Neb Soln NEB SCH (20:46)
[2019-03-31] MEDS ORDERED: Albuterol 0.083% 2.5 MG/3 ML Neb Soln INH SCH (21:00)
[2019-03-31] MEDS ORDERED: traZODone 50 MG Tab PO SCH (21:00)
[2019-03-31] MEDS: Fish Oil/Omega-3 Fatty Acids 1 Gm Cap PO SCH (21:17)
[2019-03-31] MEDS: Varenicline Tartrate [Chantix] 1 MG PO SCH (21:22)
[2019-03-31] MEDS: Azithromycin 500 MG in Sodium Chloride 0.9% 250 ML IV SCH ×2 (21:45→23:02)
[2019-03-31] MEDS ORDERED: cefTRIAXone 2 GM in Sodium Chloride 0.9% 100 ML IV SCH (22:00)
[2019-04-01] MEDS: Levalbuterol HCl 1.25 MG/0.5 ML Neb NEB SCH ×2 (02:04→08:28)
[2019-04-01] MEDS: Ipratropium 0.02% 0.5 MG/2.5 ML Neb Soln NEB SCH ×2 (02:05→08:28)
[2019-04-01] MEDS: Dexamethasone 4 MG Tab PO SCH ×3 (02:26→09:00)
[2019-04-01] MEDS: oxyCODONE 5 MG Tab PO PRN ×2 (02:26→08:53)
[2019-04-01] MEDS ORDERED: Pantoprazole 40 MG Tab.CR PO SCH (07:00)
[2019-04-01] MEDS: Aspirin 81 MG Tab.EC PO SCH (08:50)
[2019-04-01] MEDS: LORazepam 0.5 MG Tab PO PRN (08:50)
[2019-04-01] MEDS: Rosuvastatin 10 MG Tab PO SCH (08:54)
[2019-04-01] MEDS: Fish Oil/Omega-3 Fatty Acids 1 Gm Cap PO SCH ×2 (08:54→09:02)
[2019-04-01] MEDS: Isosorbide Mononitrate 30 MG Tab.ER PO SCH (08:56)
[2019-04-01] MEDS: Varenicline Tartrate [Chantix] 1 MG PO SCH (08:56)
[2019-04-01] MEDS: Carvedilol 3.125 MG Tab PO SCH (08:56)
--- NOTE | 2019-04-01 09:33 | PCM.DCSUM1 ---
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 Patient recently completed radiation and chemotherapy. 2 weeks ago she had a "lung infection" and was placed on 7 days of Levaquin. Patient presented to the emergency room yesterday with some increased shortness of breath and swelling to her lower extremities. Patient states this morning that the swelling is better. She states she is coughing quite a bit and feels like she is congested. She does have some radiation esophagitis and it hurts to eat. She also states in the last few days when she tries to lie down she gets short of breath and requires 2 pillows to sleep. Patient was seen yesterday at the [facility] and chest x-ray at that time showed no acute cardiopulmonary disease. Osseous metastatic disease was noted overlying the mid thoracic spine that correlates well with a previous PET CT scan. In the emergency room patient was given a nebulized treatment. Chest x- ray was performed. No acute findings on chest x-ray. Laboratory tests: WBC 2.85 , hemoglobin 8.7, platelet count 70,000. Patient states this is consistent with what she's had since chemotherapy for a blood count. Chemistries: Sodium 133, potassium 3.8, chloride 99, carbon dioxide 26, BUN 21, creatinine 0.7, BNP 271, C-reactive protein 10.6, troponin less than 0.017, lactic acid 1.8. Patient was started on Rocephin and azithromycin and transferred to the floor. Diagnosis: Stroke: No - Discharge Data Discharge Date: 04/01/19 Discharge Disposition: Home, Self-Care 01 Condition: Good - Referral to Home Health Primary Care Physician: Brent Rock MD - Patient Summary/Data Hospital Course: Patient was supported overnight with Xopenex, Atrovent, and IV antibiotics. She did well and is ready for discharge. Of note, she did have a drop in her sodium to 131 and she understands she will need a recheck of her sodium in the next day or 2. Of note she did get relatively tachycardic, heart rate up to 150, after using albuterol. This should be monitored as an outpatient. - Patient Instructions Diet: Heart Healthy Diet Activity: As Tolerated Driving: May Drive Today Showering/Bathing: May Shower Other/Special Instructions: Follow up with PCP and oncologist next week. Get BMP early next week to check sodium level. - Discharge Plan *PRESCRIPTION DRUG MONITORING PROGRAM REVIEWED*: No *COPY OF PRESCRIPTION DRUG MONITORING REPORT IN PATIENT ZHOU: No Prescriptions/Med Rec: Azithromycin [Zithromax] 500 mg PO DAILY #2 tab Cefdinir [Omnicef] 300 mg PO BID #10 cap Home Medications: Home Meds Nitroglycerin [Nitrostat] 0.4 mg SL Q5M PRN 03/10/14 [History] Rose-3 Fatty Acids [Rose-3] 1,000 mg PO BID 03/10/14 [History] Albuterol Sulfate [Proair Hfa] 2 puff INH Q4H PRN 06/03/17 [History] Aspirin [Halfprin] 81 mg PO DAILY 06/03/17 [History] Cholecalciferol (Vitamin D3) [Vitamin D3] 2,000 unit PO DAILY 06/03/17 [History] Tiotropium [Spiriva Handihaler] 2 puff INH DAILY 06/03/17 [History] Venlafaxine HCl [Venlafaxine ER] 75 mg PO DAILY 06/03/17 [History] Venlafaxine HCl [Venlafaxine ER] 150 mg PO DAILY 06/03/17 [History] traZODone HCl [Trazodone HCl] 100 mg PO BEDTIME 06/03/17 [History] Albuterol [Proventil Neb Soln] 1 dose INH QID PRN 07/26/18 [History] Carvedilol [Coreg] 3.125 mg PO BID 07/26/18 [History] Isosorbide Mononitrate [Imdur] 15 mg PO DAILY 07/26/18 [History] LORazepam [Ativan] 0.5 mg PO TID PRN 07/26/18 [History] Multivitamin [Daily Multiple Vitamin] 1 tab PO DAILY 07/26/18 [History] Naproxen Sodium [Aleve] 220 mg PO DAILY PRN 07/26/18 [History] Omeprazole 20 mg PO QAM 07/26/18 [History] Varenicline Tartrate [Chantix] 1 mg PO BID 09/22/18 [History] atorvaSTATin [Lipitor] 40 mg PO DAILY 09/22/18 [History] Ondansetron [Zofran ODT] 8 mg PO Q8HR PRN 03/30/19 [History] clonazePAM [Klonopin] 0.5 mg PO QPM 03/30/19 [History] dexAMETHasone [Dexamethasone] 4 mg PO Q6H 03/30/19 [History] oxyCODONE 1 - 2 tab PO Q6HR PRN 03/30/19 [History] Albuterol Sulfate [Albuterol Sulfate Hfa] 108 mcg INH Q4HR PRN 03/31/19 [History ] Lidocaine/Prilocaine [EMLA Crm] 1 applic TOP ASDIRECTED PRN 03/31/19 [History] Azithromycin [Zithromax] 500 mg PO DAILY #2 tab 04/01/19 [Rx] Cefdinir [Omnicef] 300 mg PO BID #10 cap 04/01/19 [Rx] Oxygen Therapy Mode: Room Air Referrals: Brent Rock MD [Primary Care Provider] - (Follow-up with this week. ) - Discharge Summary/Plan Comment DC Time >30 min.: Yes Discharge Summary/Plan Comment: Discharged home on antibiotics and follow-up with her primary care provider and oncologist this week. Continue on dexamethasone as previously prescribed. BMP in the next couple of days to follow-up on her sodium level. - General Info Date of Service: 04/01/19 Admission Dx/Problem (Free Text: Admission Diagnosis/Problem Admission Diagnosis/Problem Acute bronchitis Functional Status: Reports: Pain Controlled - Review of Systems General: Reports: No Symptoms HEENT: Reports: No Symptoms Pulmonary: Reports: No Symptoms Cardiovascular: Reports: No Symptoms - Patient Data Vitals - Most Recent: Last Vital Signs Temp 98.1 F 04/01/19 02:22 Pulse 102 H 04/01/19 08:56 Resp 20 04/01/19 02:22 BP 153/88 H 04/01/19 08:56 Pulse Ox 98 04/01/19 08:30 Weight - Most Recent: 169 lb 4.8 oz I&O - Last 24 hours: Intake & Output 03/31/19 04/01/19 04/01/19 22:59 06:59 14:59 Intake Total 2395 850 Output Total 2300 2500 Balance 95 -1650 Lab Results - Last 24 hrs: Laboratory Results - last 24 hr 09/14/19 09/14/19 09/14/19 Range/Units 09:08 09:08 09:08 WBC 2.70 L (3.98-10.04) K/mm3 RBC 2.46 L (3.98-5.22) M/mm3 Hgb 9.0 L (11.2-15.7) gm/L Hct 27.4 L (34.1-44.9) % MCV 111.4 H (79.4-94.8) fl MCH 36.6 H (25.6-32.2) pg MCHC 32.8 (32.2-35.5) g/dl RDW Std Deviation 55.6 H (36.4-46.3) fL Plt Count 66 L (182-369) K/mm3 MPV 9.4 (9.4-12.3) fl Neut % (Auto) 67.6 (34.0-71.1) % Lymph % (Auto) 17.6 L (19.3-51.7) % Ball[place] % (Auto) 6.5 (4.7-12.5) % Eos % (Auto) 0.7 (0.7-5.8) Baso % (Auto) 0.4 (0.1-1.2) % Neut # (Auto) 1.88 (1.56-6.13) K/mm3 Lymph # (Auto) 0.49 L (1.18-3.74) K/mm3 Ball[place] # (Auto) 0.18 L (0.24-0.36) K/mm3 Eos # (Auto) 0.02 L (0.04-0.36) K/mm3 Baso # (Auto) 0.01 (0.01-0.08) K/mm3 Manual Slide Review Abnormal smear Sodium 137 (136-145) mEq/L Potassium 4.1 (3.5-5.1) mEq/L Chloride 101 (98-107) mEq/L Carbon Dioxide 27 (21-32) mEq/L Anion Gap 13.1 (5-15) BUN 17 (7-18) mg/dL Creatinine 0.6 (0.55-1.02) mg/dL Est Cr Clr Drug Dosing 93.09 mL/min Estimated GFR (MDRD) > 60 (>60) mL/min BUN/Creatinine Ratio 28.3 H (14-18) Glucose 79 (74-106) mg/dL Calcium 8.8 (8.5-10.1) mg/dL Magnesium 1.6 L (1.8-2.4) mg/dl Total Bilirubin 0.8 (0.2-1.0) mg/dL AST 26 (15-37) U/L ALT 25 (14-59) U/L Alkaline Phosphatase 75 (46-116) U/L C-Reactive Protein 8.3 H* (<1.0) mg/dL NT-Pro-B Natriuret Pep 289 H (0-125) pg/mL Total Protein 6.3 L (6.4-8.2) g/dl Albumin 2.5 L (3.4-5.0) g/dl Globulin 3.8 gm/dL Albumin/Globulin Ratio 0.7 L (1-2) 04/01/19 04/01/19 Range/Units 08:05 08:05 WBC 4.54 (3.98-10.04) K/mm3 RBC 2.65 L (3.98-5.22) M/mm3 Hgb 9.8 L (11.2-15.7) gm/L Hct 29.7 L (34.1-44.9) % MCV 112.1 H (79.4-94.8) fl MCH 37.0 H (25.6-32.2) pg MCHC 33.0 (32.2-35.5) g/dl RDW Std Deviation 57.0 H (36.4-46.3) fL Plt Count 80 L (182-369) K/mm3 MPV 10.1 (9.4-12.3) fl Neut % (Auto) 78.4 H (34.0-71.1) % Lymph % (Auto) 11.5 L (19.3-51.7) % Ballard % (Auto) 3.5 L (4.7-12.5) % Eos % (Auto) 0 L (0.7-5.8) Baso % (Auto) 0.4 (0.1-1.2) % Neut # (Auto) 3.56 (1.56-6.13) K/mm3 Lymph # (Auto) 0.52 L (1.18-3.74) K/mm3 Ballard # (Auto) 0.16 L (0.24-0.36) K/mm3 Eos # (Auto) 0.00 L (0.04-0.36) K/mm3 Baso # (Auto) 0.02 (0.01-0.08) K/mm3 Manual Slide Review Abnormal smear Sodium 131 L (136-145) mEq/L Potassium 3.9 (3.5-5.1) mEq/L Chloride 98 (98-107) mEq/L Carbon Dioxide 25 (21-32) mEq/L Anion Gap 11.9 (5-15) BUN 22 H (7-18) mg/dL Creatinine 0.8 (0.55-1.02) mg/dL Est Cr Clr Drug Dosing 69.81 mL/min Estimated GFR (MDRD) > 60 (>60) mL/min BUN/Creatinine Ratio 27.5 H (14-18) Glucose 209 H (74-106) mg/dL Calcium 8.7 (8.5-10.1) mg/dL Magnesium (1.8-2.4) mg/dl Total Bilirubin 0.7 (0.2-1.0) mg/dL AST 25 (15-37) U/L ALT 28 (14-59) U/L Alkaline Phosphatase 94 (46-116) U/L C-Reactive Protein 11.8 H* (<1.0) mg/dL NT-Pro-B Natriuret Pep (0-125) pg/mL Total Protein 6.9 (6.4-8.2) g/dl Albumin 2.6 L (3.4-5.0) g/dl Globulin 4.3 gm/dL Albumin/Globulin Ratio 0.6 L (1-2) Med Orders - Current: Current Medications Aspirin (Halfprin) 81 mg PO DAILY [facility] Last Admin: 04/01/19 08:50 Dose: 81 mg Carvedilol (Coreg) 3.125 mg PO BID [facility] Last Admin: 04/01/19 08:56 Dose: 3.125 mg Clonazepam (Klonopin) 0.5 mg PO DAILY@2100 [facility] Last Admin: 03/31/19 21:19 Dose: 0.5 mg Dexamethasone (Dexamethasone) 4 mg PO Q6H [facility] Last Admin: 04/01/19 09:00 Dose: 4 mg Fish Oil (Fish Oil) 1 gm PO BID [facility] Last Admin: 04/01/19 09:02 Dose: Not Given Ceftriaxone Sodium 2 gm/ (Sodium Chloride) 100 mls @ 200 mls/hr IV Q24H [facility] Last Admin: 03/31/19 21:14 Dose: 200 mls/hr Azithromycin 500 mg/ Sodium (Chloride) 250 mls @ 250 mls/hr IV Q24H [facility] Last Admin: 03/31/19 23:02 Dose: Not Given Ipratropium [place] (Atrovent) 0.5 mg NEB Q6HRRT [facility] Last Admin: 04/01/19 08:28 Dose: 0.5 mg Isosorbide Mononitrate (Imdur) 15 mg PO DAILY [facility] Last Admin: 04/01/19 08:56 Dose: 15 mg Levalbuterol HCl (Xopenex) 1.25 mg NEB Q6HRRT [facility] Last Admin: 04/01/19 08:28 Dose: 1.25 mg Levalbuterol HCl (Xopenex) 1.25 mg NEB Q2H PRN PRN Reason: Wheezing Lorazepam (Ativan) 0.5 mg PO TID PRN PRN Reason: ANXIETY Last Admin: 04/01/19 08:50 Dose: 0.5 mg Nitroglycerin (Nitrostat) 0.4 mg SL Q5M PRN PRN Reason: Chest Pain Ondansetron HCl (Zofran) 4 mg IVPUSH Q6H PRN PRN Reason: nausea Ondansetron HCl (Zofran Odt) 8 mg PO Q8HR PRN PRN Reason: Nausea Oxycodone HCl (Oxycodone) 5 - 10 mg PO Q6H PRN PRN Reason: Pain Last Admin: 04/01/19 08:53 Dose: 10 mg Oxycodone/Acetaminophen (Percocet 325-5 Mg) 1 tab PO Q4H PRN PRN Reason: Pain Pantoprazole Sodium (Protonix) 40 mg PO DAILY@0700 [facility] Last Admin: 04/01/19 06:50 Dose: 40 mg Lidocaine/Prilocaine (Cream) 0 each TOP ASDIRECTED PRN PRN Reason: Pain Varenicline Tartrate ([Chantix] 1 Mg) 0 each PO BID [facility] Last Admin: 04/01/19 08:56 Dose: Not Given Rosuvastatin Calcium (Crestor) 20 mg PO DAILY [facility] Last Admin: 04/01/19 08:54 Dose: 20 mg Sodium Chloride (Saline Flush) 10 ml FLUSH ASDIRECTED PRN PRN Reason: Keep Vein Open Trazodone HCl (Trazodone) 100 mg PO BEDTIME FERMIN Last Admin: 03/31/19 21:20 Dose: 100 mg Discontinued Medications Albuterol (Proventil Neb Soln) 2.5 mg INH Q6HRRT [facility]MIN Albuterol (Proventil Neb Soln) 2.5 mg INH Q2H PRN PRN Reason: WHEEZING/SOB Albuterol/Ipratropium (Duoneb 3.0-0.5 Mg/3 Ml) 3 ml NEB ONETIME ONE Stop: 03/30/19 19:38 Last Admin: 03/30/19 19:55 Dose: 3 ml Albuterol/Ipratropium (Duoneb 3.0-0.5 Mg/3 Ml) 3 ml NEB Q6HRRT FERMIN Last Admin: 03/31/19 15:06 Dose: 3 ml Albuterol/Ipratropium (Duoneb 3.0-0.5 Mg/3 Ml) Confirm Administered Dose 3 ml .ROUTE .STK-MED ONE Stop: 03/31/19 03:23 Last Admin: 03/31/19 03:30 Dose: 3 ml Clonazepam (Klonopin) 0.5 mg PO ONETIME ONE Stop: 03/30/19 23:46 Last Admin: 03/30/19 23:56 Dose: 0.5 mg Clonazepam (Klonopin) 0.5 mg PO QPM FERMIN Ceftriaxone Sodium 2 gm/ (Sodium Chloride) 100 mls @ 200 mls/hr IV ONETIME ONE Stop: 03/30/19 22:22 Last Admin: 03/30/19 22:05 Dose: Not Given Ceftriaxone Sodium 2 gm/ (Sodium Chloride) 100 mls @ 200 mls/hr IV STAT ONE Stop: 03/30/19 22:29 Last Admin: 03/30/19 22:08 Dose: 200 mls/hr Sodium Chloride (Normal Saline) 1,000 mls @ 125 mls/hr IV ASDIRECTED FERMIN Last Admin: 03/31/19 15:29 Dose: 125 mls/hr Azithromycin 500 mg/ Sodium (Chloride) 250 mls @ 250 mls/hr IV ONETIME ONE Stop: 03/31/19 00:14 Last Admin: 03/30/19 23:29 Dose: 250 mls/hr Magnesium Sulfate 4 gm/ Premix 50 mls @ 12.5 mls/hr IV ONETIME ONE Stop: 03/31/19 15:34 Last Admin: 03/31/19 13:15 Dose: 12.5 mls/hr Lorazepam (Ativan) 0.5 mg PO TID PRN PRN Reason: ANXIETY Last Admin: 03/31/19 10:05 Dose: 0.5 mg Lorazepam (Ativan) 0.5 mg PO TID PRN PRN Reason: ANXIETY Non-Formulary Medication (Naproxen Sodium) 220 mg PO DAILY PRN PRN Reason: Pain Non-Formulary Medication (Venlafaxine Hcl) 150 mg PO DAILY [facility] Last Admin: 03/31/19 13:36 Dose: Not Given Oxycodone HCl (Oxycodone) 10 mg PO NOW ONE Stop: 03/31/19 03:11 Last Admin: 03/31/19 03:38 Dose: 10 mg Trazodone HCl (Trazodone) 100 mg PO ONETIME ONE Stop: 03/30/19 23:47 Last Admin: 03/30/19 23:57 Dose: 50 mg Venlafaxine HCl (Effexor Xr) 75 mg PO DAILY [facility] Last Admin: 03/31/19 09:58 Dose: 75 mg Venlafaxine HCl (Effexor Xr) 150 mg PO ONETIME ONE Stop: 03/31/19 10:16 Last Admin: 03/31/19 11:01 Dose: 150 mg - Exam Quality Assessment: Reports: Supplemental Oxygen General: Reports: Alert, Oriented HEENT: Reports: Pupils Equal, Pupils Reactive, EOMI, Mucous Membr. Moist/[place] Neck: Reports: Supple Lungs: Reports: Clear to Auscultation, Normal Respiratory Effort Cardiovascular: Reports: Regular Rate, Regular Rhythm GI/Abdominal Exam: Normal Bowel Sounds, Soft, Non-Tender, No Organomegaly, No Distention, No Abnormal Bruit, No Mass Extremities: Normal Inspection, Normal Range of Motion, Non-Tender, No Pedal Edema Skin: Reports: Warm, Dry, Intact Psy/Mental Status: Reports: Alert, Normal Affect, Normal Mood
[2019-04-01 12:33] VITALS: BP 134/90; PULSE 94
--- NOTE | 2019-04-03 09:41 | CR ---
Chest: Two views of the chest were obtained. Comparison: Prior chest x-ray of 09/22/18. Heart size and mediastinum are within normal limits. Slight increased density is noted within the right midlung overlying the 7th rib compatible with callus within previous rib fracture. Lung markings have diminished in prominence from prior exam. No acute parenchymal change is seen. Several sclerotic vertebral bodies are seen within the mid thoracic spine presumably due to previous metastatic disease. Lungs are hyperinflated compatible with emphysematous change. Left-sided infusion port is seen. Impression: 1. Sclerosis within several mid thoracic vertebral bodies most likely due to previous metastatic disease. 2. Emphysematous change. 3. Nothing acute is otherwise seen. Diagnostic code #3
== END 2019-04-01 12:45 | disposition home or self-care (01) | DRG 191 ==
LOC: JD.ED 17:46 → JD.MS 22:17
PROVIDERS: ADMIT Family Medicine; ATTEND Family Medicine
DX: J44.1 Chronic obstructive pulmonary disease with (acute) exacerbation (principal); C79.51 Secondary malignant neoplasm of bone; D61.818 Other pancytopenia; J44.0 Chronic obstructive pulmonary disease with (acute) lower respiratory infection; C76.0 Malignant neoplasm of head, face and neck; J20.9 Acute bronchitis, unspecified; H54.7 Unspecified visual loss; I25.10 Atherosclerotic heart disease of native coronary artery without angina pectoris; E78.00 Pure hypercholesterolemia, unspecified; I10 Essential (primary) hypertension; K59.09 Other constipation; M81.0 Age-related osteoporosis without current pathological fracture; F41.9 Anxiety disorder, unspecified; F41.0 Panic disorder [episodic paroxysmal anxiety]; F42.9 Obsessive-compulsive disorder, unspecified; R00.0 Tachycardia, unspecified; E78.5 Hyperlipidemia, unspecified; K20.8 Other esophagitis; T66.XXXA Radiation sickness, unspecified, initial encounter; F10.20 Alcohol dependence, uncomplicated; Z87.891 Personal history of nicotine dependence; Z98.51 Tubal ligation status; Z88.1 Allergy status to other antibiotic agents; Z88.5 Allergy status to narcotic agent; Z88.8 Allergy status to other drugs, medicaments and biological substances; Z79.899 Other long term (current) drug therapy; Z79.82 Long term (current) use of aspirin; Z95.5 Presence of coronary angioplasty implant and graft; Z92.21 Personal history of antineoplastic chemotherapy
CPT/HCPCS: 36415; 71046; 71046-26; 80053; 83605; 83735; 83880; 84484; 85025; 86140; 93005; 93010; 94640; 94667; 94668; 94761; 99284-25; 99285; A9270-GY; J0456; J0696; J1642; J3475; J7030; J7040; J7050; J7620-GY; J8540

== ENCOUNTER 2019-04-20 11:22 | Emergency (ER) | payer MEDICAID ==
[2019-04-20] MEDS ORDERED: Dextrose 5%-0.9% NaCl 1,000 ML IV SCH (12:00)
--- NOTE | 2019-04-20 12:06 | EDM.PDOC ---
ED HPI GENERAL MEDICAL PROBLEM - General Chief Complaint: General Stated Complaint: SENT BY INFUSION TO BE SEEN Time Seen by Provider: 04/20/19 11:45 Source of Information: Reports: Patient, Family (Daughter) History Limitations: Reports: No Limitations - History of Present Illness INITIAL COMMENTS - FREE TEXT/NARRATIVE: 58-year-old female brought to the ED from [facility] where she was at the infusion center. She is a chemotherapy patient with last chemotherapy given 3 months ago. She has subsequently been receiving radiation treatments to her chest or left upper back or spine and scapular area and right side of her neck. 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 Has had lymph node dissection in her right anterior neck. She used to smoke cigarettes. Subsequently she received chemotherapy for well over 6 months and just finished a course of radiation. This morning was identified to be low at 7.6. She has marked ecchymoses particularly upper extremities and notices that she bruises easily. Platelet count is 79,000 this morning. Blood blood cell count is also low at 3.3. Differential was not done. Chemistry shows a glucose of 82. Sodium of 132. Potassium low-normal at 3.6. Calcium 8.4. Total protein is low at 5.8 with an albumin fraction of 2.9. Liver function was normal. Patient had a PET scan 2 days ago but has not yet received the results. Onset: Gradual (Hemoglobin and hematocrit at been dropping gradually over the last several weeks. ) Duration: Day(s):, Getting Worse Location: Reports: Generalized (Generalized weakness.) Quality: Reports: Other Severity: Moderate (Generalized weakness dyspnea on minimal exertion. Occasional lightheadedness when she stands up.) Improves with: Reports: Rest Worsens with: Reports: Movement (Walking any distance causes dyspnea minimal exertion. She cannot make a full flight of stairs. Feels weakness in her lower extremities dizziness with standing intermittently.) Context: Reports: Other (Has been receiving chemotherapy and most recently radiation treatments to her right neck right chest and left upper back scapular area.). Denies: Activity, Exercise, Lifting, Sick Contact, Trauma Associated Symptoms: Reports: Loss of Appetite, Malaise, Shortness of Breath, Weakness. Denies: Confusion (Has bony metastatic disease.), Chest Pain, Cough, cough w sputum, Diaphoresis, Fever/Chills, Headaches, Nausea/Vomiting, Rash, Seizure, Syncope Treatments SPECIAL PROCEDURE TECH: Reports: Other (see below) Back Pain Score (Numeric/FACES): 4 - Related Data Allergies Allergy/AdvReac Type Severity Reaction Status Date / Time bacitracin Allergy Rash Verified 03/30/19 23:23 [From Neosporin ([id number])] bacitracin zinc Allergy Rash Verified 03/30/19 23:23 [From Neosporin ([id number])] clonidine HCl [From Catapres] Allergy Hives Verified 03/30/19 23:23 neomycin sulfate Allergy Rash Verified 03/30/19 23:23 [From Neosporin ([id number])] polymyxin B Allergy Rash Verified 03/30/19 23:23 [From Neosporin ([id number])] codeine AdvReac Nausea and Verified 03/30/19 23:23 Vomiting Home Meds: Home Meds Nitroglycerin [Nitrostat] 0.4 mg SL Q5M PRN 03/10/14 [History] [place]-3 Fatty Acids [[place]-3] 1,000 mg PO BID 03/10/14 [History] Aspirin [Halfprin] 81 mg PO DAILY 06/03/17 [History] Cholecalciferol (Vitamin D3) [Vitamin D3] 2,000 unit PO DAILY 06/03/17 [History] Tiotropium [Spiriva Handihaler] 2 puff INH DAILY 06/03/17 [History] Venlafaxine HCl [Venlafaxine ER] 75 mg PO DAILY 06/03/17 [History] Venlafaxine HCl [Venlafaxine ER] 150 mg PO DAILY 06/03/17 [History] traZODone HCl [Trazodone HCl] 100 mg PO BEDTIME 06/03/17 [History] Albuterol [Proventil Neb Soln] 1 dose INH QID PRN 07/26/18 [History] Carvedilol [Coreg] 3.125 mg PO BID 07/26/18 [History] Isosorbide Mononitrate [Imdur] 15 mg PO DAILY 07/26/18 [History] LORazepam [Ativan] 0.5 mg PO TID PRN 07/26/18 [History] Multivitamin [Daily Multiple Vitamin] 1 tab PO DAILY 07/26/18 [History] Naproxen Sodium [Aleve] 220 mg PO DAILY PRN 07/26/18 [History] Omeprazole 20 mg PO QAM 07/26/18 [History] Varenicline Tartrate [Chantix] 1 mg PO BID 09/22/18 [History] atorvaSTATin [Lipitor] 40 mg PO DAILY 09/22/18 [History] Ondansetron [Zofran ODT] 8 mg PO Q8HR PRN 03/30/19 [History] dexAMETHasone [Dexamethasone] 4 mg PO Q6H 03/30/19 [History] oxyCODONE 1 - 2 tab PO Q6HR PRN 03/30/19 [History] Albuterol Sulfate [Albuterol Sulfate Hfa] 108 mcg INH Q4HR PRN 03/31/19 [History ] Lidocaine/Prilocaine [EMLA Crm] 1 applic TOP ASDIRECTED PRN 03/31/19 [History] Fluticasone Propion/Salmeterol [Wixela 500-50 Inhub] 1 each IH BID 04/20/19 [ History] Furosemide [Lasix] 40 mg PO DAILY #30 tab 04/20/19 [Rx] Magnesium Chloride [Slow-Mag] 71.5 mg PO DAILY #60 tablet.dr 04/20/19 [Rx] Promethazine [Phenergan] 0.2 ml TOP ASDIRECTED PRN 04/20/19 [History] fentaNYL [Fentanyl] 1 each TD Q72H 04/20/19 [History] traMADol [Ultram] 50 mg PO Q6H PRN 04/20/19 [History] Past Medical History HEENT History: Reports: Impaired Vision, Other (See Below) Other HEENT History: wears glasses, has dentures, lower partial Cardiovascular History: Reports: CAD, High Cholesterol, Hypertension, Stents, Other (See Below) Other Cardiovascular History: palpitations, chest pain, sinus tachycardia, angiogram Respiratory History: Reports: COPD, SOB Gastrointestinal History: Reports: Chronic Constipation, Hemorrhoids, Other ( See Below) Other Gastrointestinal History: weight loss, rectal bleeding, liver cysts, Hepatits A, reflux esophagitis, diverticula Genitourinary History: Reports: Urinary Incontinence BILINGUAL HR GENERALIST History: Reports: , Other (See Below) Other BILINGUAL HR GENERALIST History: vaginal pregnancies Musculoskeletal History: Reports: Osteoporosis Neurological History: Reports: None Psychiatric History: Reports: Addiction, Anxiety, OCD, Panic Attack, Suicide Attempt, Other (See Below) Other Psychiatric History: fatigue, etoh abuse Endocrine/Metabolic History: Reports: None Hematologic History: Reports: Anemia, Blood Transfusion(s) Immunologic History: Reports: None Oncologic (Cancer) History: Reports: Other (See Below) Other Oncologic History: head and neck cancer, spine, bone, collarbone with mets , lymphnodes. Has had radiation 10 treatments and 6 rounds of chemo finished last 3 weeks ago. Squamous cell carcinoma diagnosed by biopsy of lymph node right neck Dermatologic History: Reports: None - Infectious Disease History Infectious Disease History: Reports: Chicken Pox, Hepatitis A, Influenza, Measles, Mumps - Past Surgical History HEENT Surgical History: Reports: None Cardiovascular Surgical History: Reports: Other (See Below) Other Cardiovascular Surgeries/Procedures: 2 stents placed Respiratory Surgical History: Reports: None GI Surgical History: Reports: Colonoscopy, EGD Female Surgical History: Reports: Breast Reconstruction, Tubal Ligation Endocrine Surgical History: Reports: None Neurological Surgical History: Reports: None Musculoskeletal Surgical History: Reports: Other (See Below) Other Musculoskeletal Surgeries/Procedures:: left leg fracture with surgery Dermatological Surgical History: Reports: Skin Biopsy Social & Family History - Family History Family Medical History: Noncontributory - Tobacco Use Smoking Status *Q: Former Smoker Used Tobacco, but Quit: Yes Month/Year Tobacco Last Used: mar - Caffeine Use Caffeine Use: Reports: Coffee, Tea Other Caffeine Use: tea a cup or two a day, 3 cups of coffee/day - Living Situation & Occupation Living situation: Reports: Occupation: Unemployed [facility] [facility] GENER[facility] - Review of Systems Review Of Systems: See Below Constitutional: Reports: Malaise, Weakness, Fatigue, Decreased Appetite, Weight Loss. Denies: Fever, Chills HEENT: Reports: Glasses Respiratory: Reports: Shortness of Breath, Cough. Denies: Wheezing, Pleuritic Chest Pain, Sputum, Hemoptysis (Sometimes productive.) Cardiovascular: Reports: Dyspnea on Exertion (Mild at the ankles.), Edema, Lightheadedness. Denies: Chest Pain, Blood Pressure Problem, Claudication, Orthopnea, Palpitations ( Worse the last 3 weeks.) Endocrine: Reports: Fatigue GI/Abdominal: Reports: Decreased Appetite : Reports: No Symptoms Musculoskeletal: Reports: Neck Pain (Left sternal pain right neck pain), Back Pain (Left upper back shoulder pain.), Other Skin: Reports: Bruising (Uses extremely easily. Both upper extremities are) Neurological: Reports: Dizziness, Difficulty Walking, Weakness. Denies: Confusion, Headache, Numbness, Syncope, Tingling, Tremors, Trouble Speaking, Change in Speech Psychiatric: Reports: Anxiety, Depression, Other (Insomnia) Hematologic/Lymphatic: Reports: Anemia, Easy Bruising Immunologic: Reports: Other (Immunocompromise due to recent chemotherapy and radiation.) ED EXAM, GENERAL - Physical Exam Exam: See Below Exam Limited By: No Limitations General Appearance: Alert, WD/WN, Other (Patient has a cushingoid appearance. Apparently she is still on dexamethasone.) Eye Exam: Bilateral Eye: PERRL, Other (Bilateral blepharal pallor marked) Throat/Mouth: Normal Inspection, Normal Lips, Normal Oropharynx Head: Atraumatic, Normocephalic Neck: Normal Inspection, Supple, Non-Tender, Full Range of Motion, Other ( Surgical scars right anterior neck zone 3.). No: Lymphadenopathy (L), Lymphadenopathy (R) Respiratory/Chest: Respiratory Distress (Tachypnea on exam. Respiratory distress 24-26/m with O2 sats of 92% on room air.), Decreased Breath Sounds, Rales (Riester injury to the lower 30% of lung puga bilaterally. Few rales appreciated right lung base. 3 bilateral small pleural effusions on examination with dullness to percussion.) Cardiovascular: Normal Peripheral Pulses, Regular Rate, Rhythm, No Gallop, No Murmur, No Rub, Other (Port-A-Cath left upper anterior chest which has been accessed today and the line remains in place for transfusion.). No: No Edema Peripheral Pulses: 2+: Posterior Tibial (L), Posterior Tibial (R), Dorsalis Pedis (L), Dorsalis Pedis (R) GI/Abdominal: Normal Bowel Sounds, Soft, Non-Tender, No Organomegaly, No Abnormal Bruit, No Mass, Other Back Exam: Normal Inspection, Full Range of Motion. No: CVA Tenderness (L), CVA Tenderness (R) Extremities: Pedal Edema (Trace edema ankles and feet. One out of) Neurological: Alert ( 4.), Oriented, CN II-XII Intact, Normal Cognition Psychiatric: Normal Affect, Normal Mood Skin Exam: Warm, Dry, Intact, Pallor (Moderately pallid.) Course - Vital Signs Last Recorded V/S: Last Vital Signs Temp 36.8 C 04/20/19 18:55 Pulse 92 04/20/19 18:55 Resp 14 04/20/19 18:55 BP 121/86 04/20/19 18:55 Pulse Ox 92 L 04/20/19 11:36 - Orders/Labs/Meds Orders: Active Orders 24 hr Category Date Time Status Influenza Vaccine Charge [RC] .DISCHARGE Care 04/20/19 12:07 Active Dextrose 5%-0.9% NaCl [Dextrose 5%-Normal Saline] 1,000 Med 04/20/19 12:00 Active ml IV ASDIRECTED Sodium Chloride 0.9% [Normal Saline] 250 ml Med 04/20/19 14:00 Active IV ASDIRECTED Transfuse PRBC [Transfuse Red Blood Cells] [COMM] Oth 04/20/19 12:00 Ordered Routine Medication Orders Dextrose/Sodium Chloride (Dextrose 5%-Normal Saline) 1,000 mls @ 75 mls/hr IV ASDIRECTED [facility] Last Admin: 04/20/19 12:42 Dose: 75 mls/hr Sodium Chloride (Normal Saline) 250 mls @ 999 mls/hr IV ASDIRECTED [facility] Last Admin: 04/20/19 13:55 Dose: 999 mls/hr Labs: Laboratory Tests 04/20/19 04/20/19 04/20/19 Range/Units 12:25 12:25 12:25 WBC (3.98-10.04) K/mm3 RBC (3.98-5.22) M/mm3 Hgb (11.2-15.7) gm/dl Hct (34.1-44.9) % MCV (79.4-94.8) fl MCH (25.6-32.2) pg MCHC (32.2-35.5) g/dl RDW Std Deviation (36.4-46.3) fL Plt Count (182-369) K/mm3 MPV (9.4-12.3) fl Neutrophils % (Manual) (40-60) % Band Neutrophils % (0-10) % Lymphocytes % (Manual) (20-40) % Atypical Lymphs % % Monocytes % (Manual) (2-10) % Eosinophils % (Manual) (0.7-5.8) % Basophils % (Manual) (0.1-1.2) Platelet Estimate Poikilocytosis Macrocytosis Magnesium 1.4 L (1.8-2.4) mg/dl NT-Pro-B Natriuret Pep 1356 H (0-125) pg/mL Blood Type O POSITIVE Gel Antibody Screen Negative Crossmatch See Detail 04/20/19 Range/Units 12:25 WBC 3.51 L (3.98-10.04) K/mm3 RBC 1.94 L (3.98-5.22) M/mm3 Hgb 7.3 L* D (11.2-15.7) gm/dl Hct 21.2 L (34.1-44.9) % MCV 109.3 H (79.4-94.8) fl MCH 37.6 H (25.6-32.2) pg MCHC 34.4 (32.2-35.5) g/dl RDW Std Deviation 57.7 H (36.4-46.3) fL Plt Count 78 L (182-369) K/mm3 MPV 9.5 (9.4-12.3) fl Neutrophils % (Manual) 78 H (40-60) % Band Neutrophils % 4 (0-10) % Lymphocytes % (Manual) 12 L (20-40) % Atypical Lymphs % 0 % Monocytes % (Manual) 6 (2-10) % Eosinophils % (Manual) 0 L (0.7-5.8) % Basophils % (Manual) 0 L (0.1-1.2) Platelet Estimate Decreased Poikilocytosis 1+ slight Macrocytosis 3+ marked Magnesium (1.8-2.4) mg/dl NT-Pro-B Natriuret Pep (0-125) pg/mL Blood Type Gel Antibody Screen Crossmatch Meds: Medications Generic Name Dose Route Start Last Admin Trade Name Freq PRN Reason Stop Dose Admin Dextrose/Sodium Chloride 1,000 mls @ 75 mls/hr 04/20/19 12:00 04/20/19 12:42 Dextrose 5%-Normal Saline IV 75 mls/hr ASDIRECTED FERMIN Administration Sodium Chloride 250 mls @ 999 mls/hr 04/20/19 14:00 04/20/19 13:55 Normal Saline IV 999 mls/hr ASDIRECTED FERMIN Administration Discontinued Medications Generic Name Dose Route Start Last Admin Trade Name Ghanshyam PRN Reason Stop Dose Admin Furosemide 40 mg 04/20/19 13:33 04/20/19 14:01 Lasix IVPUSH 04/20/19 13:34 40 mg NOW ONE Administration Furosemide 40 mg 04/20/19 17:30 04/20/19 18:09 Lasix IVPUSH 04/20/19 17:31 Not Given NOW ONE Furosemide 40 mg 04/20/19 19:00 04/20/19 19:02 Lasix IVPUSH 04/20/19 19:01 40 mg ONETIME ONE Administration Heparin Sodium (Porcine) 500 units 04/20/19 17:30 04/20/19 19:09 Heparin Lock Flush 100 Units/Ml FLUSH 04/20/19 17:31 500 units NOW STA Administration Magnesium Sulfate 4 gm/ Premix 50 mls @ 12.5 mls/hr 04/20/19 13:34 04/20/19 14:29 IV 04/20/19 17:33 12.5 mls/hr ONETIME ONE Administration Influenza Virus Vaccine 1 each 04/20/19 12:06 Pharmacy To Dose - Influenza Vaccine IM 04/20/19 12:07 ONETIME ONE Influenza Virus Vaccine 60 mcg 04/20/19 12:15 04/20/19 12:37 Fluzone Quad 1550-4401 Syringe IM 04/20/19 12:16 60 mcg .ONCE ONE Administration - Radiology Interpretation Free Text/Narrative:: 58-year-old female sent to the ED for evaluation of anemia diagnosed this morning with a hemoglobin of 7.6 and a hematocrit of 22.1 . Platelet count is also low at 79,000. White count is 3.3 with no differential reported. She is also mildly hyponatremic at 132. Potassium low-normal at 3.6. Plan on examination she appears to have bilateral small pleural effusions clinically. I will have a BNP performed as well as a serum magnesium and mild CBC with manual differential. IV will be D5 normal saline at 75 mils per hour. Plan will be to transfuse 2 units of packed RBCs consent for blood transfusion obtain. Has a portacath left upper anterior chest. - Re-Assessments/Exams Free Text/Narrative Re-Assessment/Exam: 04/20/19 13:01 portable chest x-ray reveals hyperinflated lung puga. There is a significant infiltrate in the right upper lobe of the lung suggesting this is probably pleural-based. Cannot rule out underlying pneumonia. Possible fibrosis in this area if this is where she has been receiving radiation. Cardiac silhouette is within normal limits. 04/20/19 13:32 Labs reveal a mild leukopenia with a white count of 3.51. The differential is 78% neutrophils and 4% bands however. Hemoglobin is 7.3.Hematocrit is 21.2. MCV elevated at 109.3. Platelet count 78,000. Slide shows 1+ poorly cheilosis ptosis and 3+ macrocytosis. Magnesium level is low at 1.4 BNP is elevated at 1356. This means the patient will require Lasix now and I will repeat after her second unit of packed cells has been transfused. She will also be given magnesium 4 g IV while she's in the ED. The question is whether or not she has a definitive pneumonia right upper lobe of her lung which appear so on x-ray. She has a slight left shift in her lab work even though she is leukopenic with 4% band cells. Patient denies any fever or chills. She states the cough is somewhat productive but she can't bring up any sputum. She was told that there was some radiation damage to her lung after radiations suggesting the infiltrate right upper lobe of her lung is radiation induced. She may be coughing due to elevated BNP as she does feel congested in her lungs and is worse when she lies down. 04/20/19 15:38 patient is wide and 3 times since given the Lasix 40 mg IV. She is currently usp through her first unit of packed RBCs and is doing well. O2 sats are now 97% up from 92% at the time of admission. 04/20/19 17:32 patient continues to do well. No problems receiving second unit of packed RBCs. They should be infused by about 1930 hrs. She really isn't hungry at this time and denies any supper at this time. Lasix 40 mg IV will be repeated at the end of the infusion of second unit of packed cells. Departure - Departure Time of Disposition: 19:29 Disposition: Home, Self-Care 01 Condition: Fair Clinical Impression: Thrombocytopenia due to drugs, Leukopenia due to antineoplastic chemotherapy, Hypomagnesemia, Mild congestive heart failure, CHF, Congestive heart failure Anemia Qualifiers: Anemia type: other cause Other causes of anemia: antineoplastic chemotherapy Qualified Code(s): D64.81 - Anemia due to antineoplastic chemotherapy - Discharge Information *PRESCRIPTION DRUG MONITORING PROGRAM REVIEWED*: Not Applicable *COPY OF PRESCRIPTION DRUG MONITORING REPORT IN PATIENT ZHOU: Not Applicable Prescriptions: Furosemide [Lasix] 40 mg PO DAILY #30 tab Magnesium Chloride [Slow-Mag] 71.5 mg PO DAILY #60 tablet. Instructions: Anemia, Hypomagnesemia Referrals: Brent Rock MD [Primary Care Provider] - Forms: ED Department Discharge Additional Instructions: Evaluation the emergency room today in regards to findings of being anemic at the clinic today. Anemia with a hemoglobin of 7.3 identified in the ED. You therefore received 2 units of packed red blood cells while in the emergency department today which should bring you up to around 9.5 or better hemoglobin you were noted to be low and your platelet count is well at 79,000 which is responsible for some of the bruising you have on your upper extremities. Blood cell count is also low and you're still at risk of catching infection and therefore advised to stay away from any other people that are infected. Other findings without of mild fluid retention which may be causing her chronic cough. Called mild congestive heart failure and is likely residual both chemotherapy and radiation to your chest. Suggest using Lasix 40 mg tablet once every morning to keep the fluid off her lungs and improve your cough. HEENT 2 doses of Lasix in the emergency department today one before he received 2 units of packed red blood cells and one dose after receiving 2 units of packed cells. The other problem identified was low magnesium level of 1.4. Normal is 1.8 or better. He received 4 g of magnesium while in the department as well. Suggest taking a supplement of magnesium called Slow-Mag 71.5 mg tablet twice daily until you are able to eat normally as a magnesium supplement. It is important for heart health. Suggest follow-up towards the end of next week for repeat blood work. - My Orders Last 24 Hours: My Active Orders 04/20/19 12:00 Dextrose 5%-0.9% NaCl [Dextrose 5%-Normal Saline] 1,000 ml IV ASDIRECTED Transfuse PRBC [Transfuse Red Blood Cells] [COMM] Routine 04/20/19 12:07 Influenza Vaccine Charge [RC] .DISCHARGE 04/20/19 14:00 Sodium Chloride 0.9% [Normal Saline] 250 ml IV ASDIRECTED - Assessment/Plan Last 24 Hours: My Active Orders 04/20/19 12:00 Dextrose 5%-0.9% NaCl [Dextrose 5%-Normal Saline] 1,000 ml IV ASDIRECTED Transfuse PRBC [Transfuse Red Blood Cells] [COMM] Routine 04/20/19 12:07 Influenza Vaccine Charge [RC] .DISCHARGE 04/20/19 14:00 Sodium Chloride 0.9% [Normal Saline] 250 ml IV ASDIRECTED
[2019-04-20] MEDS ORDERED: FLU Vacc QS2019-20(6MOS+)/PF 60 MCG/0.5 ML SYRINGE IM ONE (12:15)
--- NOTE | 2019-04-20 13:06 | CR ---
Chest: Portable view of the chest was obtained. Comparison: Prior chest x-ray of 03/30/19. Increased density within the right upper chest is seen as an interval change. Left-sided infusion catheter is noted. Heart size and mediastinum are normal. Bony structures are grossly intact. Impression: 1. Findings suspicious for right upper lobe pneumonia. Diagnostic code #3
[2019-04-20] MEDS ORDERED: Furosemide 40 MG/4 ML VIAL IVPUSH ONE ×3 (13:33→19:00)
[2019-04-20] MEDS ORDERED: Magnesium Sulfate/Water 4 GM in Premix Bag 1 BAG IV ONE (13:34)
[2019-04-20] MEDS ORDERED: Sodium Chloride 0.9% 250 ML IV SCH (14:00)
[2019-04-20 18:16] VITALS: PULSE 92
[2019-04-20 18:59] VITALS: BP 121/86
== END 2019-04-20 19:45 | disposition home or self-care (01) ==
LOC: JD.ED 11:22
DX: D69.59 Other secondary thrombocytopenia (principal); D70.1 Agranulocytosis secondary to cancer chemotherapy; D64.81 Anemia due to antineoplastic chemotherapy; C44.42 Squamous cell carcinoma of skin of scalp and neck; E83.42 Hypomagnesemia; E78.00 Pure hypercholesterolemia, unspecified; I25.10 Atherosclerotic heart disease of native coronary artery without angina pectoris; J44.9 Chronic obstructive pulmonary disease, unspecified; I11.0 Hypertensive heart disease with heart failure; I50.9 Heart failure, unspecified; Z95.5 Presence of coronary angioplasty implant and graft; Z79.82 Long term (current) use of aspirin; Z79.899 Other long term (current) drug therapy; Z87.891 Personal history of nicotine dependence; Z79.51 Long term (current) use of inhaled steroids
CPT/HCPCS: 36415; 36430; 71045; 83735; 83880; 85007; 85027; 86850; 86900; 86901; 86922; 90471; 90686; 96361; 96365; 96366; 96375; 96376; 99284; J1642; J1940; J3475; J7042; J7050; P9016; G0008

== ENCOUNTER 2019-04-22 10:39 | Emergency (ER) | payer MEDICAID ==
[2019-04-22 10:52] VITALS: BP 154/93; PULSE 127
--- NOTE | 2019-04-22 10:57 | EDM.PDOC ---
ED HPI GENERAL MEDICAL PROBLEM - General Chief Complaint: Neuro Symptoms/Deficits Stated Complaint: [facility] Time Seen by Provider: 04/22/19 10:40 Source of Information: Reports: Family (Daughter) History Limitations: Reports: Altered Mental Status (Patient is unable to speak and the daughter reports that she does take it doesn't make sense.) - History of Present Illness INITIAL COMMENTS - FREE TEXT/NARRATIVE: 58-year-old female presents to the ED with her daughter. This morning upon awakening she found her mother to be confused with a glazed over look in her eyes and her speech is nonsensical. Obey any commands. I seen this patient 2 days ago because of anemia with a hemoglobin of 7.3 and she remained in the ED for approximately 8 hours receiving 2 units of packed cells. She was discharged home approximately 1930 hrs. that evening. The daughter that is with her just came to [place] yesterday. She believes her mom may have had a stroke sometime during the night. Last known well time was therefore around 2100 hrs. last night. This is a guest in it. Family got her up around 0700 hrs. this morning and she was growling and making nonsensical verbal noises. She's been confused since that time. Onset: Unknown/Unsure (Sometime during the night.), Other Duration: Hour(s):, Constant Location: Reports: Generalized (Generalized glaze look in her eyes and she does not verbalize. Daughter states when she has tried to talk to her she will not obey commands. She also speaks but it's garbled and nonsensical.) Quality: Reports: Other (A phasic.) Severity: Severe Improves with: Reports: None Worsens with: Reports: None Context: Reports: Other (Patient has known squamous cell carcinoma biopsy from right neck. Subsequent she's received chemotherapy and radiation to bones). Denies: Activity, Exercise, Lifting, Sick Contact, Trauma Associated Symptoms: Reports: Confusion ( due to metastatic disease.), Malaise. Denies: Chest Pain, Cough, cough w sputum, Diaphoresis, Fever/Chills, Headaches, Loss of Appetite, Nausea/Vomiting, Rash, Seizure, Shortness of Breath , Syncope Treatments COAT OPERATOR: Reports: Other (see below) (None.) - Related Data Allergies Allergy/AdvReac Type Severity Reaction Status Date / Time bacitracin Allergy Rash Verified 04/22/19 11:39 [From Neosporin ([id number])] bacitracin zinc Allergy Rash Verified 04/22/19 11:39 [From Neosporin ([id number])] clonidine HCl [From Catapres] Allergy Hives Verified 04/22/19 11:39 neomycin sulfate Allergy Rash Verified 04/22/19 11:39 [From Neosporin ([id number])] polymyxin B Allergy Rash Verified 04/22/19 11:39 [From Neosporin ([id number])] codeine AdvReac Nausea and Verified 04/22/19 11:39 Vomiting Home Meds: Home Meds Nitroglycerin [Nitrostat] 0.4 mg SL Q5M PRN 03/10/14 [History] [place]-3 Fatty Acids [[place]-3] 1,000 mg PO BID 03/10/14 [History] Aspirin [Halfprin] 81 mg PO DAILY 06/03/17 [History] Cholecalciferol (Vitamin D3) [Vitamin D3] 2,000 unit PO DAILY 06/03/17 [History] Tiotropium [Spiriva Handihaler] 2 puff INH DAILY 06/03/17 [History] Venlafaxine HCl [Venlafaxine ER] 225 mg PO DAILY 06/03/17 [History] traZODone HCl [Trazodone HCl] 100 mg PO BEDTIME 06/03/17 [History] Albuterol [Proventil Neb Soln] 1 dose INH QID PRN 07/26/18 [History] Carvedilol [Coreg] 3.125 mg PO BID 07/26/18 [History] Isosorbide Mononitrate [Imdur] 15 mg PO DAILY 07/26/18 [History] LORazepam [Ativan] 0.5 mg PO TID PRN 07/26/18 [History] Multivitamin [Daily Multiple Vitamin] 1 tab PO DAILY 07/26/18 [History] Naproxen Sodium [Aleve] 220 mg PO DAILY PRN 07/26/18 [History] Omeprazole 20 mg PO QAM 07/26/18 [History] Varenicline Tartrate [Chantix] 1 mg PO BID 09/22/18 [History] atorvaSTATin [Lipitor] 40 mg PO DAILY 09/22/18 [History] Ondansetron [Zofran ODT] 8 mg PO Q8HR PRN 03/30/19 [History] dexAMETHasone [Dexamethasone] 4 mg PO Q6H 03/30/19 [History] oxyCODONE 1 - 2 tab PO Q6HR PRN 03/30/19 [History] Albuterol Sulfate [Albuterol Sulfate Hfa] 108 mcg INH Q4HR PRN 03/31/19 [History ] Lidocaine/Prilocaine [EMLA Crm] 1 applic TOP ASDIRECTED PRN 03/31/19 [History] Fluticasone Propion/Salmeterol [[place]ixela 500-50 Inhub] 1 each IH BID 04/20/19 [ History] Furosemide [Lasix] 40 mg PO DAILY #30 tab 04/20/19 [Rx] Magnesium Chloride [Slow-Mag] 71.5 mg PO DAILY #60 tablet.dr 04/20/19 [Rx] Promethazine [Phenergan] 0.2 ml TOP ASDIRECTED PRN 04/20/19 [History] fentaNYL [Fentanyl] 125 mcg TD Q72H 04/20/19 [History] traMADol [Ultram] 50 mg PO Q6H PRN 04/20/19 [History] Past Medical History HEENT History: Reports: Impaired Vision, Other (See Below) Other HEENT History: wears glasses, has dentures, lower partial Cardiovascular History: Reports: CAD, High Cholesterol, Hypertension, Stents, Other (See Below) Other Cardiovascular History: palpitations, chest pain, sinus tachycardia, angiogram Respiratory History: Reports: COPD, SOB Gastrointestinal History: Reports: Chronic Constipation, Hemorrhoids, Other ( See Below) Other Gastrointestinal History: weight loss, rectal bleeding, liver cysts, Hepatits A, reflux esophagitis, diverticula Genitourinary History: Reports: Urinary Incontinence BENEFIT SPECIALIST History: Reports: , Other (See Below) Other BENEFIT SPECIALIST History: vaginal pregnancies Musculoskeletal History: Reports: Osteoporosis Neurological History: Reports: None Psychiatric History: Reports: Addiction, Anxiety, OCD, Panic Attack, Suicide Attempt, Other (See Below) Other Psychiatric History: fatigue, etoh abuse Endocrine/Metabolic History: Reports: None Hematologic History: Reports: Anemia, Blood Transfusion(s) Immunologic History: Reports: None Oncologic (Cancer) History: Reports: Other (See Below) Other Oncologic History: head and neck cancer, spine, bone, collarbone with mets , lymphnodes. Has had radiation 10 treatments and 6 rounds of chemo finished last 3 weeks ago. Dermatologic History: Reports: None - Infectious Disease History Infectious Disease History: Reports: Chicken Pox, Hepatitis A, Influenza, Measles, Mumps - Past Surgical History HEENT Surgical History: Reports: None Cardiovascular Surgical History: Reports: Other (See Below) Other Cardiovascular Surgeries/Procedures: 2 stents placed Respiratory Surgical History: Reports: None GI Surgical History: Reports: Colonoscopy, EGD Female Surgical History: Reports: Breast Reconstruction, Tubal Ligation Endocrine Surgical History: Reports: None Neurological Surgical History: Reports: None Musculoskeletal Surgical History: Reports: Other (See Below) Other Musculoskeletal Surgeries/Procedures:: left leg fracture with surgery Dermatological Surgical History: Reports: Skin Biopsy Social & Family History - Family History Family Medical History: Noncontributory - Caffeine Use Caffeine Use: Reports: Coffee, Tea Other Caffeine Use: tea a cup or two a day, 3 cups of coffee/day - Living Situation & Occupation Living situation: Reports: Occupation: Unemployed ED ROS GENERAL - Review of Systems Review Of Systems: Unable To Obtain (Unable to obtain from the patient. She is a phasic.) Constitutional: Reports: Malaise, Weakness, Fatigue. Denies: Fever, Chills ED EXAM, NEURO - Physical Exam Exam: See Below Exam Limited By: Altered Mental Status (Patient is a phasic.) General Appearance: Other ( Patientpresents with a glazed over appearance certain her eyes and looking around the room not recognizing any faces. She was nonverbal and ice try to speak with her. I got her to be one command and that was to open her mouth so I can have a look at her tongue but this was only slightly. This was a gentle pushing down on her chin. ) Eye Exam: Bilateral Eye: Normal Inspection (No gaze palsy.), PERRL (pupil pupils are reactive to light and accommodation.) Throat/Mouth: Other Head Exam: Atraumatic, Normocephalic (Tongue is dry and coated.), Other (No outward signs of head or facial trauma.) Neck: Non-Tender, Full Range of Motion, Other (Well-healed biopsy scar right lateral neck zone 3.). No: Lymphadenopathy (L), Lymphadenopathy (R) Respiratory/Chest: No Respiratory Distress, Decreased Breath Sounds (Decreased air into the lower 30% of lung puga bilaterally.), Rhonchi (Scatter rhonchi right upper lung field.) Cardiovascular: Normal Peripheral Pulses, Regular Rate, Rhythm, No Edema, No Gallop, No Murmur, No Rub GI/Abdominal: Normal Bowel Sounds, Soft, Non-Tender, No Organomegaly Neurological: Other (Moves all limbs.). No: Oriented x 3 Back Exam: Normal Inspection, Full Range of Motion. No: CVA Tenderness (L), CVA Tenderness (R) Extremities: Normal Inspection, Normal Range of Motion, Non-Tender, Pedal Edema (Trace pedal edema ankles.) Psychiatric: Other Skin Exam: Warm, Dry, Intact, Pallor (Mildly pallid. Of note she had 2 units of blood transfused 2 days ago. Hemoglobin was 7.3 at that time prior to transfusion) EKG INTERPRETATION EKG Date: 04/22/19 Time: 11:13 Rhythm: Other (Sinus tachycardia) Rate (Beats/Min): 121 [place]: Normal P-Wave: Enlarged (Right) QRS: Other (atrial hypertrophy pattern.) ST-T: Depressed (Slight ST segment depression leads V4, V5. Suspect mild ST segment depression in lead aVF as well.) QT: Normal EKG Interpretation Comments: Borderline ECG Course - Vital Signs Last Recorded V/S: Last Vital Signs Temp 36.6 C 04/22/19 10:45 Pulse 127 H 04/22/19 10:45 Resp 16 04/22/19 10:45 BP 154/93 H 04/22/19 10:45 Pulse Ox 98 04/22/19 10:45 - Orders/Labs/Meds Orders: Active Orders 24 hr Category Date Time Status Blood Glucose Check, Bedside [RC] ONETIME Care 04/22/19 10:49 Active EKG Documentation Completion [RC] STAT Care 04/22/19 10:49 Active Jansen Catheter Insertion [Insert Urinary Catheter] [OM. Care 04/22/19 11:00 Ordered PC] Q24H Oxygen Therapy [RC] ASDIRECTED Care 04/22/19 10:49 Active Oxygen Therapy [RC] ASDIRECTED Care 04/22/19 13:04 Ordered Urinary Catheter Assessment [RC] ASDIRECTED Care 04/22/19 10:50 Active Ankle Min 3V Lt [CR] Stat Exams 04/22/19 11:40 Taken Chest 1V Frontal [CR] Stat Exams 04/22/19 12:23 Taken CULTURE BLOOD [BC] Stat Lab 04/22/19 12:10 Received CULTURE BLOOD [BC] Stat Lab 04/22/19 12:30 Received Dextrose 5%-0.9% NaCl [Dextrose 5%-Normal Saline] 1,000 Med 04/22/19 11:00 Active ml IV ASDIRECTED Piperacillin/Tazobactam [Piperacil-Tazobact] 4.5 gm Med 04/22/19 12:22 Active Sodium Chloride 0.9% [Normal Saline] 100 ml IV ONETIME Blood Culture x2 Reflex Set [OM.PC] Stat Oth 04/22/19 11:27 Ordered Medication Orders Dextrose/Sodium Chloride (Dextrose 5%-Normal Saline) 1,000 mls @ 150 mls/hr IV ASDIRECTED FERMIN Last Admin: 04/22/19 11:22 Dose: 150 mls/hr Piperacillin Sod/Tazobactam (Sod 4.5 gm/ Sodium Chloride) 100 mls @ 25 mls/hr IV ONETIME ONE Stop: 04/22/19 16:21 Last Admin: 04/22/19 12:34 Dose: 25 mls/hr Labs: Laboratory Tests 04/22/19 04/22/19 04/22/19 Range/Units 10:46 11:00 11:00 WBC 1.65 L* (3.98-10.04) K/mm3 RBC 2.84 L (3.98-5.22) M/mm3 Hgb 10.1 L D (11.2-15.7) gm/dl Hct 27.9 L (34.1-44.9) % MCV 98.2 H D (79.4-94.8) fl MCH 35.6 H (25.6-32.2) pg MCHC 36.2 H (32.2-35.5) g/dl RDW Std Deviation 62.6 H (36.4-46.3) fL Plt Count 57 L (182-369) K/mm3 MPV 10.4 (9.4-12.3) fl Neut % (Auto) 72.2 H (34.0-71.1) % Lymph % (Auto) 12.7 L (19.3-51.7) % [place] % (Auto) 13.9 H (4.7-12.5) % Eos % (Auto) 0.6 L (0.7-5.8) Baso % (Auto) 0.6 (0.1-1.2) % Neut # (Auto) 1.19 L (1.56-6.13) K/mm3 Lymph # (Auto) 0.21 L (1.18-3.74) K/mm3 [place] # (Auto) 0.23 L (0.24-0.36) K/mm3 Eos # (Auto) 0.01 L (0.04-0.36) K/mm3 Baso # (Auto) 0.01 (0.01-0.08) K/mm3 Manual Slide Review Abnormal smear ESR (0-20) mm/hr PT 11.0 (9.7-12.0) SECONDS INR 1.01 APTT 28 (22-31) SECONDS Sodium (136-145) mEq/L Potassium (3.5-5.1) mEq/L Chloride (98-107) mEq/L Carbon Dioxide (21-32) mEq/L Anion Gap (5-15) BUN (7-18) mg/dL Creatinine (0.55-1.02) mg/dL Est Cr Clr Drug Dosing Estimated GFR (MDRD) (>60) mL/min BUN/Creatinine Ratio (14-18) Glucose (74-106) mg/dL POC Glucose 118 H (70-105) mg/dL Lactic Acid (0.4-2.0) mmol/L Uric Acid (2.6-6.0) mg/dL Calcium (8.5-10.1) mg/dL Magnesium (1.8-2.4) mg/dl Total Bilirubin (0.2-1.0) mg/dL AST (15-37) U/L ALT (14-59) U/L Alkaline Phosphatase (46-116) U/L Troponin I (0.00-0.056) ng/mL C-Reactive Protein (<1.0) mg/dL NT-Pro-B Natriuret Pep (0-125) pg/mL Total Protein (6.4-8.2) g/dl Albumin (3.4-5.0) g/dl Globulin gm/dL Albumin/Globulin Ratio (1-2) Urine Color (Yellow) Urine Appearance (Clear) Urine pH (5.0-8.0) Ur Specific [place] (1.005-1.030) Urine Protein (Negative) Urine Glucose (UA) (Negative) Urine Ketones (Negative) Urine Occult Blood (Negative) Urine Nitrite (Negative) Urine Bilirubin (Negative) Urine Urobilinogen (0.2-1.0) Ur Leukocyte Esterase (Negative) Urine RBC (0-5) /hpf Urine WBC (0-5) /hpf Ur Squamous Epith Cells (0-5) /hpf Urine Bacteria (FEW) /hpf Urine Mucus (FEW) /hpf 04/22/19 04/22/19 04/22/19 Range/Units 11:00 11:00 11:00 WBC (3.98-10.04) K/mm3 RBC (3.98-5.22) M/mm3 Hgb (11.2-15.7) gm/dl Hct (34.1-44.9) % MCV (79.4-94.8) fl MCH (25.6-32.2) pg MCHC (32.2-35.5) g/dl RDW Std Deviation (36.4-46.3) fL Plt Count (182-369) K/mm3 MPV (9.4-12.3) fl Neut % (Auto) (34.0-71.1) % Lymph % (Auto) (19.3-51.7) % [place] % (Auto) (4.7-12.5) % Eos % (Auto) (0.7-5.8) Baso % (Auto) (0.1-1.2) % Neut # (Auto) (1.56-6.13) K/mm3 Lymph # (Auto) (1.18-3.74) K/mm3 [place] # (Auto) (0.24-0.36) K/mm3 Eos # (Auto) (0.04-0.36) K/mm3 Baso # (Auto) (0.01-0.08) K/mm3 Manual Slide Review ESR > 120 H (0-20) mm/hr PT (9.7-12.0) SECONDS INR APTT (22-31) SECONDS Sodium 130 L (136-145) mEq/L Potassium 3.4 L (3.5-5.1) mEq/L Chloride 94 L (98-107) mEq/L Carbon Dioxide 30 (21-32) mEq/L Anion Gap 9.4 (5-15) BUN 37 H (7-18) mg/dL Creatinine 0.9 (0.55-1.02) mg/dL Est Cr Clr Drug Dosing TNP Estimated GFR (MDRD) > 60 (>60) mL/min BUN/Creatinine Ratio 41.1 H (14-18) Glucose 117 H (74-106) mg/dL POC Glucose (70-105) mg/dL Lactic Acid 1.8 (0.4-2.0) mmol/L Uric Acid (2.6-6.0) mg/dL Calcium 9.7 (8.5-10.1) mg/dL Magnesium 2.0 (1.8-2.4) mg/dl Total Bilirubin 1.3 H (0.2-1.0) mg/dL AST 32 (15-37) U/L ALT 28 (14-59) U/L Alkaline Phosphatase 103 (46-116) U/L Troponin I < 0.017 (0.00-0.056) ng/mL C-Reactive Protein 49.7 H* (<1.0) mg/dL NT-Pro-B Natriuret Pep (0-125) pg/mL Total Protein 6.3 L (6.4-8.2) g/dl Albumin 1.8 L (3.4-5.0) g/dl Globulin 4.5 gm/dL Albumin/Globulin Ratio 0.4 L (1-2) Urine Color (Yellow) Urine Appearance (Clear) Urine pH (5.0-8.0) Ur Specific [place] (1.005-1.030) Urine Protein (Negative) Urine Glucose (UA) (Negative) Urine Ketones (Negative) Urine Occult Blood (Negative) Urine Nitrite (Negative) Urine Bilirubin (Negative) Urine Urobilinogen (0.2-1.0) Ur Leukocyte Esterase (Negative) Urine RBC (0-5) /hpf Urine WBC (0-5) /hpf Ur Squamous Epith Cells (0-5) /hpf Urine Bacteria (FEW) /hpf Urine Mucus (FEW) /hpf 04/22/19 04/22/19 04/22/19 Range/Units 11:00 11:27 12:15 WBC (3.98-10.04) K/mm3 RBC (3.98-5.22) M/mm3 Hgb (11.2-15.7) gm/dl Hct (34.1-44.9) % MCV (79.4-94.8) fl MCH (25.6-32.2) pg MCHC (32.2-35.5) g/dl RDW Std Deviation (36.4-46.3) fL Plt Count (182-369) K/mm3 MPV (9.4-12.3) fl Neut % (Auto) (34.0-71.1) % Lymph % (Auto) (19.3-51.7) % [place] % (Auto) (4.7-12.5) % Eos % (Auto) (0.7-5.8) Baso % (Auto) (0.1-1.2) % Neut # (Auto) (1.56-6.13) K/mm3 Lymph # (Auto) (1.18-3.74) K/mm3 [place] # (Auto) (0.24-0.36) K/mm3 Eos # (Auto) (0.04-0.36) K/mm3 Baso # (Auto) (0.01-0.08) K/mm3 Manual Slide Review ESR (0-20) mm/hr PT (9.7-12.0) SECONDS INR APTT (22-31) SECONDS Sodium (136-145) mEq/L Potassium (3.5-5.1) mEq/L Chloride (98-107) mEq/L Carbon Dioxide (21-32) mEq/L Anion Gap (5-15) BUN (7-18) mg/dL Creatinine (0.55-1.02) mg/dL Est Cr Clr Drug Dosing Estimated GFR (MDRD) (>60) mL/min BUN/Creatinine Ratio (14-18) Glucose (74-106) mg/dL POC Glucose (70-105) mg/dL Lactic Acid (0.4-2.0) mmol/L Uric Acid 4.4 (2.6-6.0) mg/dL Calcium (8.5-10.1) mg/dL Magnesium (1.8-2.4) mg/dl Total Bilirubin (0.2-1.0) mg/dL AST (15-37) U/L ALT (14-59) U/L Alkaline Phosphatase (46-116) U/L Troponin I (0.00-0.056) ng/mL C-Reactive Protein (<1.0) mg/dL NT-Pro-B Natriuret Pep 1259 H (0-125) pg/mL Total Protein (6.4-8.2) g/dl Albumin (3.4-5.0) g/dl Globulin gm/dL Albumin/Globulin Ratio (1-2) Urine Color [place] H (Yellow) Urine Appearance Slt cloudy H (Clear) Urine pH 5.5 (5.0-8.0) Ur Specific [place] 1.025 (1.005-1.030) Urine Protein 2+ H (Negative) Urine Glucose (UA) Trace H (Negative) Urine Ketones Negative (Negative) Urine Occult Blood 2+ H (Negative) Urine Nitrite Positive H (Negative) Urine Bilirubin 1+ H (Negative) Urine Urobilinogen >=8.0 H (0.2-1.0) Ur Leukocyte Esterase Negative (Negative) Urine RBC 0-5 (0-5) /hpf Urine WBC 0-5 (0-5) /hpf Ur Squamous Epith Cells Not seen (0-5) /hpf Urine Bacteria Moderate H (FEW) /hpf Urine Mucus Not seen (FEW) /hpf Meds: Medications Generic Name Dose Route Start Last Admin Trade Name Freq PRN Reason Stop Dose Admin Dextrose/Sodium Chloride 1,000 mls @ 150 mls/hr 04/22/19 11:00 04/22/19 13:08 Dextrose 5%-Normal Saline IV 999 mls/hr ASDIRECTED FERMIN Infusion Piperacillin Sod/Tazobactam 100 mls @ 25 mls/hr 04/22/19 12:22 04/22/19 12:34 Sod 4.5 gm/ Sodium Chloride IV 04/22/19 16:21 25 mls/hr ONETIME ONE Administration Discontinued Medications Generic Name Dose Route Start Last Admin Trade Name Freq PRN Reason Stop Dose Admin Lorazepam 1 mg 04/22/19 12:53 04/22/19 13:01 Ativan IVPUSH 04/22/19 12:54 1 mg ONETIME ONE Administration - Radiology Interpretation Free Text/Narrative:: 58-year-old female presents to the ED with complete aphasia and obviously confused and disoriented. She doesn't seem to recognize anybody in the room including me from my just seen within the last 48 hours. 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 She has had chemotherapy and radiation to her sternum and left scapula area due to bony metastatic disease. At this time she presents with complete a fascia and confusional state. 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 Plan routine labs. CT head to be done. IV will be D5 normal saline 150 mils per hour. - Re-Assessments/Exams Free Text/Narrative Re-Assessment/Exam: 04/22/19 11:31 CT head is completed. It is within normal limits showing no obvious intracerebral mass effect or intracranial bleeding. Her white count apparently is very low at 1.31. He is not warm to palpation but blood cultures 2 will be done. Patient will have to be sent out for MRI of her brain. 04/22/19 11:32 Hematology is back showing a white count of 1.65. This is definitely a drop from 2 days ago when he was in the 3.5 range. Hemoglobin is 10.1 and it was 7.3 before 2 units of packed cells 2 days ago. Hematocrit is 27.9. MCV is 98.2. Platelet count is low at 57,000. It was Y believe 59,002 days ago.. Glucose at the bedside is 118. 04/22/19 12:27 The manual differential shows toxic granulation and moderate bandemia suggesting underlying sepsis. Chemistry is now available reveals a sodium of 1:30 potassium of 3.4. Chloride is 94 with a bicarbonate of 30. Anion gap is 9.4. BUN is 37 with a creatinine of 0.9. GFR is greater than 60. Glucose is 117 lactic acid 1.8. Calcium 9.7. Magnesium 2.0 total bilirubin 1.3 with an AST of 32 and an ALT of 28. Alk phosphatase 103. Troponin I is less than 0.017. C-reactive protein is markedly elevated at 49.7. BNP today is 1259. Total protein is 6.3 albumin fraction 1.8. 04/22/19 12:28 blood pressure is 117/88. Heart rate is 135 in sinus. Be given a liter of fluid IV bolus. Will start her on antibiotic Zosyn 4.5 g IV due to suspect sepsis. Chest x-ray done 2 days ago did reveal an infiltrate in the right upper lobe of her lung suggesting possible pneumonia. It also was place where she had had radiotherapy and she been told she had some pleural thickening in this area. Before appears that she may well have an underlying pneumonia. Chest x-ray will be repeated at this time. 04/22/19 12:45 Urinalysis shows 2+ proteinuria. 2+ occult blood positive nitrate 1+ bilirubin negative leukocyte esterase and no red cells or white cells noted on the slide. Moderate bacteria appreciated. X-rays of the left ankle shows the previous rodding of the tibia. The bones are very osteopenic but there are no fractures present. Chest x-ray does reveal a right upper lobar pneumonia that is showing more extensive consolidation and inflammation since Tuesday. 04/22/19 12:55 patient is becoming more agitated trying to get up out of bed and doesn't understand or obey commands. Will give her Ativan 1 mg IV. She has a Jansen catheter in her bladder. I have reached out through the one call nurse at [facility] in [place] and she will call me back when hospitalist as available. 04/22/19 13:[address] Schmitz --material liaison hospitalist at [facility] in [place] and he has accepted care of this patient. She will be transported to that facility per ground ambulance. Departure - Departure Time of Disposition: 13:14 Disposition: DC/Tfer to Acute Hospital 02 Condition: Serious Clinical Impression: Immunocompromised patient, Confusion with nonfocal neurological examination, Expressive aphasia, Thrombocytopenia due to drugs Pneumonia Qualifiers: Pneumonia type: due to unspecified organism Laterality: right Lung location: upper lobe of lung Qualified Code(s): J18.1 - Lobar pneumonia, unspecified organism Leukopenia Qualifiers: Leukopenia type: neutropenia Neutropenia type: secondary to cancer chemotherapy Qualified Code(s): D70.1 - Agranulocytosis secondary to cancer chemotherapy - Discharge Information *PRESCRIPTION DRUG MONITORING PROGRAM REVIEWED*: Not Applicable *COPY OF PRESCRIPTION DRUG MONITORING REPORT IN PATIENT ZHOU: Not Applicable Instructions: Confusion, Aphasia Referrals: Brent Rock MD [Primary Care Provider] - Forms: ED Department Discharge - My Orders Last 24 Hours: My Active Orders 04/22/19 10:49 Blood Glucose Check, Bedside [RC] ONETIME EKG Documentation Completion [RC] STAT Oxygen Therapy [RC] ASDIRECTED 04/22/19 10:50 Urinary Catheter Assessment [RC] ASDIRECTED 04/22/19 11:00 Jansen Catheter Insertion [Insert Urinary Catheter] [OM.PC] Q24H Dextrose 5%-0.9% NaCl [Dextrose 5%-Normal Saline] 1,000 ml IV ASDIRECTED 04/22/19 11:27 Blood Culture x2 Reflex Set [OM.PC] Stat 04/22/19 11:40 Ankle Min 3V Lt [CR] Stat 04/22/19 12:10 CULTURE BLOOD [BC] Stat 04/22/19 12:22 Piperacillin/Tazobactam [Piperacil-Tazobact] 4.5 gm Sodium Chloride 0.9% [ Normal Saline] 100 ml IV ONETIME 04/22/19 12:23 Chest 1V Frontal [CR] Stat 04/22/19 12:30 CULTURE BLOOD [BC] Stat 04/22/19 13:04 Oxygen Therapy [RC] ASDIRECTED - Assessment/Plan Last 24 Hours: My Active Orders 04/22/19 10:49 Blood Glucose Check, Bedside [RC] ONETIME EKG Documentation Completion [RC] STAT Oxygen Therapy [RC] ASDIRECTED 04/22/19 10:50 Urinary Catheter Assessment [RC] ASDIRECTED 04/22/19 11:00 Jansen Catheter Insertion [Insert Urinary Catheter] [OM.PC] Q24H Dextrose 5%-0.9% NaCl [Dextrose 5%-Normal Saline] 1,000 ml IV ASDIRECTED 04/22/19 11:27 Blood Culture x2 Reflex Set [OM.PC] Stat 04/22/19 11:40 Ankle Min 3V Lt [CR] Stat 04/22/19 12:10 CULTURE BLOOD [BC] Stat 04/22/19 12:22 Piperacillin/Tazobactam [Piperacil-Tazobact] 4.5 gm Sodium Chloride 0.9% [ Normal Saline] 100 ml IV ONETIME 04/22/19 12:23 Chest 1V Frontal [CR] Stat 04/22/19 12:30 CULTURE BLOOD [BC] Stat 04/22/19 13:04 Oxygen Therapy [RC] ASDIRECTED
[2019-04-22] MEDS ORDERED: Dextrose 5%-0.9% NaCl 1,000 ML IV SCH (11:00)
--- NOTE | 2019-04-22 11:39 | CT ---
Head CT Technique: Multiple axial sections through the brain were obtained. Intravenous contrast was not utilized. Comparison: No previous intracranial imaging is available. Findings: Ventricles along with basal cisterns and sulci over convexities are mildly prominent for the patient's age. No abnormal parenchymal densities are identified. No midline shift or mass effect is seen. Atherosclerotic calcification is seen within the vertebral vessels and within the carotid siphon. Bone window settings were reviewed which shows no acute calvarial abnormality. Mastoid sinuses are hypoplastic which are an incidental note. Visualized paranasal sinuses are clear. Impression: 1. Mild generalized atrophy. Other findings as noted above. 2. Nothing acute is appreciated on noncontrast head CT exam. Note: Please correlate if patient's symptoms warrant further evaluation by MRI. Diagnostic code #2
[2019-04-22] MEDS ORDERED: Piperacillin/Tazobactam 4.5 GM in Sodium Chloride 0.9% 100 ML IV ONE (12:22)
[2019-04-22] MEDS ORDERED: LORazepam 2 MG/ML SDV IVPUSH ONE (12:53)
[2019-04-22] MEDS ORDERED: HYDROmorphone 0.5 MG/0.5 ML Syringe IVPUSH ONE (13:29)
--- NOTE | 2019-04-23 08:00 | CR ---
Chest: Portable view of the chest is obtained. Comparison: Prior chest x-ray of 04/20/19. Chest CT of 04/03/19 is also available. Increasing density within the right upper chest from prior study most likely representing worsening pneumonia. Left lung shows no definite acute process at this time. Prior chest CT study of 04/03/19 showed a mass within the left lung which is poorly seen on chest x-ray. Heart size and mediastinum are stable. Infusion port is seen. Impression: 1. Increasing density within the right upper chest from previous exam. This is presumably due to worsening pneumonia. Given the patient is immune compromised, findings could represent an atypical infection. 2. Previous left lower lung mass that was seen on chest CT is poorly seen on current plain film study. 3. Infusion port which is stable from previous chest x-ray. Diagnostic code #3
--- NOTE | 2019-04-23 08:00 | CR ---
Left ankle: Four views of the left ankle were obtained. Comparison: No previous study. Plantar spur is noted. Calcification within the distal Achilles tendon at the attachment of acute calcaneus. Intramedullary rere partially visualized. Bony structures show no acute fracture or dislocation. Osteopenia is present. Soft tissue swelling is noted. Impression: 1. Findings most likely incidental as noted above. 2. No acute bony abnormality is identified. Soft tissue swelling is present. Diagnostic code #2
== END 2019-04-22 13:50 ==
LOC: JD.ED 10:39
DX: D89.9 Disorder involving the immune mechanism, unspecified (principal); R41.0 Disorientation, unspecified; R47.01 Aphasia; D69.59 Other secondary thrombocytopenia; T50.905A Adverse effect of unspecified drugs, medicaments and biological substances, initial encounter; J18.1 Lobar pneumonia, unspecified organism; J44.0 Chronic obstructive pulmonary disease with (acute) lower respiratory infection; I25.10 Atherosclerotic heart disease of native coronary artery without angina pectoris; E78.00 Pure hypercholesterolemia, unspecified; I10 Essential (primary) hypertension; F41.9 Anxiety disorder, unspecified; Z85.830 Personal history of malignant neoplasm of bone; Z85.89 Personal history of malignant neoplasm of other organs and systems; Z79.899 Other long term (current) drug therapy; Z79.82 Long term (current) use of aspirin; Z79.51 Long term (current) use of inhaled steroids; Z88.1 Allergy status to other antibiotic agents; Z88.8 Allergy status to other drugs, medicaments and biological substances; Z88.5 Allergy status to narcotic agent; Z95.5 Presence of coronary angioplasty implant and graft
CPT/HCPCS: 36415; 51702; 70450; 71045; 73610; 80053; 81001; 82962; 83605; 83735; 83880; 84484; 84550; 85025; 85610; 85652; 85730; 86140; 87040; 87077; 87086; 87088; 87186; 93005; 96361; 96365; 96375; 99285; J1170; J2060; J2543; J7030; J7042; 93010